=== PATIENT | male | born 1940 | race Caucasian/White ===

== ENCOUNTER 2016-11-11 00:09 | Inpatient (IN) | payer MEDICARE ==
[2016-11-11] VITALS (18 sets, daily range): BP systolic 114–165; BP diastolic 72–95; PULSE 57–81; RESP 16–20; TEMP 96.8–98.9; O2SAT 95–100
[~2016-11-11] VITALS: Ht 172.7 cm; Wt 98.5 kg
--- NOTE | 2016-11-11 00:46 | PD ---
HPI Chief Complaint: Chest Pain Time Seen by Provider: 00:28 Travel History International Travel<30 days: No Contact w/Intl Traveler<30days: No History of Present Illness HPI 76-year-old male complains of chest pain radiating from the right lower chest to the left anterior chest wall. It started after he got into bed this evening. Earlier in the day he unloaded luggage after driving to [place] for a vacation. He feels pain in the midline lower back at about the region of T12. Earlier in the day he felt indigestion and took Tums. Same symptoms occurred a second time and he took Tums again. He's had no fever or coughing. + Hx HLD, HTN and DM2. He quit smoking 25 years ago. No history of coronary artery disease. He describes the pain as a dull ache. Severity is mild. PFSH Social History Tobacco Use: No Allergies-Medications (Allergen,Severity, Reaction): Coded Allergies: Aspirin (Verified Allergy, Severe, Vision Loss/ Pass Out , 11/11/16) Reported Meds & Prescriptions Reported Meds & Active Scripts Active Reported Losartan (Losartan Potassium) 100 Mg Tab 100 Mg PO DAILY Atorvastatin (Atorvastatin Calcium) 10 Mg Tab 10 Mg PO HS Janumet Xr (Sitagliptin-Metformin ER) 50-1,000 Mg Tab 1 Tab PO DAILY Review of Systems Except as stated in HPI: all other systems reviewed are Neg General / Constitutional: No: Fever Cardiovascular: No: Chest Pain or Discomfort Physical Exam Narrative GENERAL: 76-year-old male well-nourished well-developed no acute distress SKIN: Focused skin assessment warm/dry. HEAD: Atraumatic. Normocephalic. EYES: Pupils equal and round. No scleral icterus. No injection or drainage. ENT: No nasal bleeding or discharge. Mucous membranes pink and moist. NECK: Trachea midline. No JVD. CARDIOVASCULAR: Regular rate and rhythm. No murmur appreciated. RESPIRATORY: No accessory muscle use. Clear to auscultation. Breath sounds equal bilaterally. GASTROINTESTINAL: Abdomen soft, non-tender, nondistended. Hepatic and splenic margins not palpable. MUSCULOSKELETAL: No obvious deformities. No clubbing. No cyanosis. No edema. No deformity along the spine. NEUROLOGICAL: Awake and alert. No obvious cranial nerve deficits. Motor grossly within normal limits. Normal speech. PSYCHIATRIC: Appropriate mood and affect; insight and judgment normal. Data Data Last Documented VS Vital Signs Date Time Temp Pulse Resp B/P Pulse Ox O2 Delivery O2 Flow Rate FiO2 11/11/16 00:51 72 20 100 Room Air 11/11/16 00:51 165/79 160/82 Orders Electrocardiogram (11/11/16 00:28) Basic Metabolic Panel (Bmp) (11/11/16 00:28) Ckmb (Isoenzyme) Profile (11/11/16 00:28) Complete Blood Count With Diff (11/11/16 00:28) Magnesium (Mg) (11/11/16 00:28) Prothrombin Time / Inr (Pt) (11/11/16:28) Act Partial Throm Time (Ptt) (11/11/16:28) Troponin I (11/11/16:) Chest, Single Ap (11/11/16:28) Ecg Monitoring (11/11/16 00:28) Iv Access Insert/Monitor (11/11/16:28) Oximetry (11/11/16 00:28) Oxygen Administration (11/11/16 00:28) CKMB (11/11/16 00:30) CKMB% (11/11/16 00:30) Sodium Chlor 0.9% 1000 Ml Inj (Ns 1000 M (11/11/16 01:30) Admit Order (Ed Use Only) (11/11/16 01:46) Labs Laboratory Tests Test 11/11/16 00:30 White Blood Count 15.2 TH/MM3 Red Blood Count 3.74 MIL/MM3 Hemoglobin 11.9 GM/DL Hematocrit 35.0 % Mean Corpuscular Volume 93.5 FL Mean Corpuscular Hemoglobin 31.6 PG Mean Corpuscular Hemoglobin 33.9 % Concent Red Cell Distribution Width 13.8 % Platelet Count 194 TH/MM3 Mean Platelet Volume 9.0 FL Neutrophils (%) (Auto) 60.2 % Lymphocytes (%) (Auto) 22.6 % Monocytes (%) (Auto) 12.7 % Eosinophils (%) (Auto) 3.1 % Basophils (%) (Auto) 1.4 % Neutrophils # (Auto) 9.2 TH/MM3 Lymphocytes # (Auto) 3.4 TH/MM3 Monocytes # (Auto) 1.9 TH/MM3 Eosinophils # (Auto) 0.5 TH/MM3 Basophils # (Auto) 0.2 TH/MM3 CBC Comment DIFF FINAL Differential Comment Prothrombin Time 10.7 SEC Prothromb Time International 1.0 RATIO Ratio Activated Partial 18.6 SEC Thromboplast Time Sodium Level 139 MEQ/L Potassium Level 4.9 MEQ/L Chloride Level 108 MEQ/L Carbon Dioxide Level 25.2 MEQ/L Anion Gap 6 MEQ/L Blood Urea Nitrogen 32 MG/DL Creatinine 1.50 MG/DL Estimat Glomerular Filtration 46 ML/MIN Rate Random Glucose 220 MG/DL Calcium Level 9.2 MG/DL Magnesium Level 2.1 MG/DL Total Creatine Kinase 162 U/L Creatine Kinase MB 2.4 NG/ML Troponin I LESS THAN 0.02 NG/ML MDM Medical Decision Making Medical Screen Exam Complete: Yes Emergency Medical Condition: Yes Differential Diagnosis NSTEMI, unstable angina, coronary vasospasm, PE, PTX, aortic dissection, pericarditis, myocarditis, endocarditis, PNA, esophageal disease, aneurysm, musculoskeletal etiologies, anxiety, cocaine/sympathomimetic abuse Narrative Course EKG shows a sinus rhythm at 81 left anterior fascicular block INR is 1.0 CBC & BMP Diagram 11/11/16 00:30 Troponins less than 0.02 Last 24 hours Impressions Chest X-Ray 11/11/16 0028 Signed Impressions: Service Date/Time: October 00:36 - CONCLUSION: No acute disease. Chaz Lui MD Patient will be kept overnight for chest pain center protocol. Discussed with Dr. Burkett. Diagnosis Primary Impression: Chest pain Qualified Code: R07.9 - Chest pain, unspecified type Admitting Information Admitting Physician Requests: Observation Gabriel Patel MD November 11, 2016 00:46
[2016-11-11 00:47] LABS: AUTOMATED NEUTROPHIL # 9.2 TH/MM3 (1.8-7.7); BASOPHIL # 0.2 TH/MM3 (0-0.2); BASOPHIL % 1.4 % (0.0-2.0); EOSINOPHIL # 0.5 TH/MM3 (0-0.4); EOSINOPHIL % 3.1 % (0.0-4.0); LYMPH % 22.6 % (9.0-44.0); LYMPHOCYTE # 3.4 TH/MM3 (1.0-4.8); MEAN CELL VOLUME 93.5 FL (80.0-100.0); MEAN CORPUSCULAR HEMOGLOBIN 31.6 PG (27.0-34.0); MEAN CORPUSCULAR HGB CONC 33.9 % (32.0-36.0); MONO % 12.7 % (0.0-8.0); NEUT % 60.2 % (16.0-70.0); PLATELET COUNT 194 TH/MM3 (150-450); RED BLOOD COUNT 3.74 MIL/MM3 (4.50-5.90); RED CELL DISTRIBUTION WIDTH 13.8 % (11.6-17.2); WHITE BLOOD COUNT 15.2 TH/MM3 (4.0-11.0)
[2016-11-11 00:48] LABS: HEMO FLAGS DIFF FINAL
[2016-11-11 00:53] LABS: CHLORIDE 108 MEQ/L (98-107); SODIUM (NA) 139 MEQ/L (136-145)
[2016-11-11 00:56] LABS: ANION GAP 6 MEQ/L (5-15); BICARBONATE 25.2 MEQ/L (21.0-32.0); MAGNESIUM 2.1 MG/DL (1.5-2.5)
[2016-11-11 00:57] LABS: BLOOD UREA NITROGEN 32 MG/DL (7-18)
[2016-11-11 00:58] LABS: POTASSIUM 4.9 MEQ/L (3.5-5.1)
[2016-11-11 01:00] LABS: GLOMERULAR FILTRATION RATE 46 ML/MIN (>89)
--- NOTE | 2016-11-11 01:00 | RADHPO ---
EXAM DATE/TIME: 11/11/2016 00:36 [facility] COMPARISON: No previous studies available for comparison. INDICATIONS : Chest pain for 2 hours MEDICAL HISTORY : None. SURGICAL HISTORY : None. ENCOUNTER: Initial ACUITY: 1 day PAIN SCORE: 7/10 LOCATION: Center of chest FINDINGS: A single view of the chest demonstrates the lungs to be symmetrically aerated without evidence of mas s, infiltrate or effusion. The cardiomediastinal contours are unremarkable. Osseous structures are intact. CONCLUSION: No acute disease. Chaz Lui MD on November 11, 2016 at 0:59 Board Certified Radiologist. This report was verified electronically.
[2016-11-11 01:03] LABS: CREATINE KINASE 162 U/L (39-308); PROTHROMBIN TIME - PATIENT 10.7 SEC (9.8-11.6)
[2016-11-11 01:08] LABS: APTT (PATIENT) 18.6 SEC (24.3-30.1)
[2016-11-11] MEDS ORDERED: ATOR10TA15 PO (01:09)
[2016-11-11] MEDS ORDERED: SITA50TA4 PO (01:09)
[2016-11-11] MEDS ORDERED: LOSA100T PO (01:09)
[2016-11-11 01:15] LABS: CKMB 2.4 NG/ML (0.5-3.6)
[2016-11-11] MEDS ORDERED: SODIUM CHLOR 0.9% 1000 ML INJ 1,000 ML IV ONE (01:30)
[2016-11-11] MEDS ORDERED: SODIUM CHLORIDE 0.9% FLUSH 10 ML FLUSH IV FLUSH PRN (02:00)
[2016-11-11] MEDS ORDERED: DEXTROSE 50% IN WATER 50 ML VIAL(D50) IV ONE (02:00)
[2016-11-11] MEDS ORDERED: GLUCAGON 1 MG/ML VIAL IM ONE (02:00)
[2016-11-11] MEDS: SODIUM CHLORIDE 0.9% FLUSH 10 ML FLUSH IV FLUSH SCH ×2 (09:00→20:41)
[2016-11-11 09:33] LABS: AUTOMATED NEUTROPHIL # 3.2 TH/MM3 (1.8-7.7); BASOPHIL % 0.4 % (0.0-2.0); EOSINOPHIL # 0.1 TH/MM3 (0-0.4); EOSINOPHIL % 2.3 % (0.0-4.0); HEMATOCRIT 31.1 % (39.0-51.0); HEMO FLAGS DIFF FINAL; LYMPHOCYTE # 1.2 TH/MM3 (1.0-4.8); MEAN CELL VOLUME 93.6 FL (80.0-100.0); MEAN CORPUSCULAR HEMOGLOBIN 31.8 PG (27.0-34.0); MONO % 13.2 % (0.0-8.0); NEUT % 61.1 % (16.0-70.0); PLATELET COUNT 166 TH/MM3 (150-450); RED BLOOD COUNT 3.32 MIL/MM3 (4.50-5.90); RED CELL DISTRIBUTION WIDTH 13.7 % (11.6-17.2); WHITE BLOOD COUNT 5.2 TH/MM3 (4.0-11.0)
[2016-11-11 09:49] LABS: BICARBONATE 25.2 MEQ/L (21.0-32.0)
[2016-11-11 09:55] LABS: POTASSIUM 4.4 MEQ/L (3.5-5.1)
[2016-11-11] MEDS ORDERED: GLUCAGON 1 MG/ML VIAL OTHER PRN (11:15)
[2016-11-11] MEDS ORDERED: LABETALOL HCL 100 MG/20 ML VIAL IV PUSH PRN (11:15)
[2016-11-11] MEDS ORDERED: DEXTROSE 50% IN WATER 50 ML VIAL(D50) IV PRN (11:15)
[2016-11-11] MEDS ORDERED: NITROGLYCERIN 0.4 MG SL 25 TABS/BTL SL PRN (11:30)
--- NOTE | 2016-11-11 11:34 | MB ---
cc: MIMI ABDI DATE OF CONSULTATION 11/11/2016 INDICATION [id number] MA. HISTORY OF PRESENT ILLNESS A 76-year-old gentleman with history of diabetes, hyperlipidemia and hypertension who presented to the emergency department at [facility] with chest pain on the right side radiating towards the left anterior chest wall. He states that earlier in the day he was lifting luggage after driving to [place] [employer] for a vacation. He developed some back pain, indigestion, then developed chest pain. He has no prior history of known heart disease. He came into emergency department. There the electrocardiogram was relatively unremarkable. Initial troponin was negative. Over the course of the evening his troponin bumped up to 0.07. We are consulted for further recommendations regarding management. Currently reports mild active chest pain. ALLERGIES ASPIRIN. MEDICATIONS 1. Losartan. 2. Atorvastatin. 3. Janumet. REVIEW OF SYSTEMS A 12-point review of some was performed, negative unless otherwise noted in the History of Present Illness. SOCIAL HISTORY Quit smoking 25 years ago. Denies any alcohol or drug use. FAMILY HISTORY Denies any family history of early coronary artery disease or sudden cardiac . PHYSICAL EXAMINATION VITAL SIGNS: Pulse is 71, temperature is 98, respiratory rate 16, blood pressure 139/78 mmHg. GENERAL: Awake, alert, oriented x 3. In no acute distress. HEENT: Exam shows pupils reactive to light and accommodation. Extraocular movements are inact. NECK: No elevation in jugular venous distension. No thyromegaly or lymphadenopathy. No carotid bruits. LUNGS: Clear to auscultation bilaterally. CARDIOVASCULAR EXAM: Regular rate and rhythm without murmurs, rubs or gallops. ABDOMEN: Exam is nontender, nondistended. Good bowel sounds. No hepatosplenomegaly. EXTREMITIES: No clubbing, cyanosis or edema. Good peripheral pulses. NEUROLOGIC: Cranial nerves intact. Motor and sensory grossly intact. LABORATORY DATA WBC 5.2, hemoglobin 10.6, platelet count is 166. INR is 1.0. Sodium 145, potassium 4.4, chloride 111, bicarb is 25, BUN is 29, creatinine is 1.3. Troponin is 0.07. ELECTROCARDIOGRAM Sinus rhythm, poor R-wave progression, nonspecific T-wave abnormality. CONCLUSIONS 1. [id number] MA. 2. Diabetes. 3. Hypertension. 4. Hyperlipidemia. PLAN Symptoms are suggestive. Electrocardiograms shows some nonspecific changes but the patient is having on and off intermittent chest pain associated with elevated troponin. His pretest likelihood for disease is high given his diabetes, hypertension and hyperlipidemia. I do not think there is any utility for stress test in this situation. We will proceed directly with cardiac catheterization. Patient is going to decide if he wants to proceed with cardiac catheterization. MD GOSIA Mandujano/CHANCE /10:52 AM /11:14 AM [id number]
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
--- NOTE | 2016-11-11 12:29 | EKG ---
Date Performed: 11/11/2016 Time Performed: 03:38:16 PTAGE: 76 years EKG: Sinus rhythm Left axis deviation RBBB with left anterior fascicular block Abnormal ECG PREVIOUS TRACING : 11/11/2016 00.11 Since previous tracing, no significant change noted DOCTOR: Manny Rock Interpretating Date/Time 11/11/2016 12:28:17
--- NOTE | 2016-11-11 12:30 | EKG ---
Date Performed: 11/11/2016 Time Performed: 00:11:44 PTAGE: 76 years EKG: Sinus rhythm . Left anterior fascicular block Septal ST-T changes are nonspecific Borderline ECG NO PREVIOUS TRACING DOCTOR: Manny Rock Interpretating Date/Time 11/11/2016 12:29:06
--- NOTE | 2016-11-11 12:33 | EKG ---
Date Performed: 11/11/2016 Time Performed: 06:12:52 PTAGE: 76 years EKG: Normal Sinus rhythm Left axis deviation RBBB with left anterior fascicular block Abnormal ECG PREVIOUS TRACING : 11/11/2016 03.38 Since previous tracing, no significant change noted DOCTOR: Manny Rock Interpretating Date/Time 11/11/2016 12:32:08
[2016-11-11] MEDS: SODIUM CHLOR 0.9% 1000 ML INJ 1,000 ML IV SCH ×2 (12:50→19:49)
[2016-11-11 13:14] LABS: HDL CHOLESTEROL 31.9 MG/DL (40.0-60.0); LDL CHOLESTEROL 69 MG/DL (0-99)
[2016-11-11] MEDS: INSULIN ASPART SUPPLEMENTAL SCALE SQ SCH ×2 (16:00→20:46)
--- NOTE | 2016-11-11 17:38 | EC ---
Study Study Date:11/11/2016 STUDY CONCLUSIONS SUMMARY - Procedure narrative: Transthoracic echocardiography. Image quality was suboptimal. The study was technically limited due to poor acoustic window availability. Scanning was performed from the parasternal, apical, and subcostal acoustic windows. - Left ventricle: Not well visualized. The cavity size was normal. Wall thickness was normal. Systolic function was mildly reduced. The estimated ejection fraction was in the range of 45% to 50%. Probable hypokinesis of the anterior and apical myocardium. - Aortic valve: Valve area: 2.35cm^2(VTI). Valve area: 2.94cm^2 (Vmax). - Mitral valve: Mild regurgitation. - Tricuspid valve: Mild regurgitation. If LV function is below 40, please consider prescribing an ACEI or ARB or document rationale for non-use. PROCEDURE DATA STUDY STATUS: Elective. Procedure: Transthoracic echocardiography. Image quality was suboptimal. The study was technically limited due to poor acoustic window availability. Scanning was performed from the parasternal, apical, and subcostal acoustic windows. Study completion: The patient tolerated the procedure well. Transthoracic echocardiography. M-mode, complete 2D, complete spectral Doppler, and color Doppler. Height: Height: 68in. Weight: Weight: 184.6lb. Body mass index: BMI: 28.1kg/m^2. Body surface area: BSA: 1.98m^2. Patient status: Inpatient. CARDIAC ANATOMY LEFT VENTRICLE: Not well visualized. The cavity size was normal. Wall thickness was normal. Systolic function was mildly reduced. The estimated ejection fraction was in the range of 45% to 50%. Regional wall motion abnormalities: Probable hypokinesis of the anterior and apical myocardium. AORTIC VALVE: Trileaflet; normal thickness leaflets. Doppler: Transvalvular velocity was within the normal range. There was no stenosis. No regurgitation. Valve area: 2.35cm^2(VTI). Indexed valve area: 1.19cm^2/m^2 (VTI). Valve area: 2.94cm^2 (Vmax). Indexed valve area: 1.48cm^2/m^2 (Vmax). Mean gradient: 2mm Hg (S). AORTA: Aortic root: The aortic root was normal in size. MITRAL VALVE: Structurally normal valve. Doppler: Transvalvular velocity was within the normal range. There was no evidence for stenosis. Mild regurgitation. LEFT ATRIUM: The atrium was normal in size. RIGHT VENTRICLE: The cavity size was normal. Wall thickness was normal. PULMONIC VALVE: Doppler: Transvalvular velocity was within the normal range. There was no evidence for stenosis. No regurgitation. TRICUSPID VALVE: Structurally normal valve. Doppler: Transvalvular velocity was within the normal range. Mild regurgitation. PULMONARY ARTERY: The main pulmonary artery was normal-sized. Systolic pressure was within the normal range. RIGHT ATRIUM: The atrium was normal in size. PERICARDIUM: There was no pericardial effusion. SYSTEMIC VEINS: Inferior vena cava: The vessel was normal in size. Patient weight: 184.6lb _Ejection fraction:_ 65-75% _Fractional shortening:_ 32% up to 5Kg 5-11.5Kg 11.6-22.9Kg 23-45Kg 45-57Kg Aortic Root 7-13 <17 13-22 17-27 17-27 LA diam 6-13 <23 24-38 33-47 37-40 RVID 10-17 7-15 7-15 7-18 8-17 LVIDd 12-22 <32 24-38 33-47 37-40 LVPW 2-4 3-6 5-7 6-8 7-8 IVS 2-4 3-6 5-7 6-8 7-8 BASIC MEASUREMENTS ADULT NORMAL Left ventricle LV internal dimension, ED, chordal 51.7 mm 43-52 level, PLAX LV internal dimension, ES, chordal *39.6 mm 23-38 level, PLAX Fractional shortening, chordal level, *23 % >29 PLAX LV posterior wall thickness, ED 8.84 mm IVS/LVPW ratio, ED 0.99 <1.3 Ventricular septum Septal thickness, ED 8.78 mm Aortic valve Leaflet separation 20 mm 15-26 Aorta Root diameter, ED 35 mm Left atrium Anterior-posterior dimension 34 mm Anterior-posterior dimension index 1.72 cm/m^2 <2.2 BASIC MEASUREMENTS ADULT NORMAL Aortic valve Leaflet separation 20 mm 15-26 DOPPLER MEASUREMENTS ADULT NORMAL Aortic valve Peak velocity, S 88.2 cm/s Mean velocity, S 61.4 cm/s VTI, S 18 cm Mean gradient, S 2 mm Hg Valve area, VTI 2.35 cm^2 Valve area index, VTI 1.19 cm^2/m^2 Valve area, Vmax 2.94 cm^2 Valve area index, Vmax 1.48 cm^2/m^2 Mitral valve Peak E-wave velocity 60.2 cm/s Peak A-wave velocity 99.2 cm/s Deceleration time 173 ms 150-230 Peak E/A ratio 0.6 Tricuspid valve Regurgitant peak velocity 189 cm/s Peak RV-RA gradient, S 14 mm Hg Maximal regurgitant velocity 189 cm/s Pulmonic valve Peak velocity, S 68.4 cm/s LEGEND: Mean values are shown as u=mean value. Asterisk (*) guthrie values outside specified normal range. Amended Shady Murray [id number]
[2016-11-11] MEDS: ATORVASTATIN 10 MG TAB PO SCH (20:41)
[2016-11-11 22:26] LABS: HEMOGLOBIN A1a 1.3 %; HEMOGLOBIN A1b 2.3 %; HEMOGLOBIN Ao 79.4 %; HEMOGLOBIN LA1C 2.5 %; HEMOGLOBIN P3 4.5 %
[2016-11-12] VITALS (27 sets, daily range): BP systolic 99–148; BP diastolic 55–88; PULSE 52–89; RESP 18; TEMP 97.8–98.7; O2SAT 98–100
[2016-11-12] MEDS: INSULIN ASPART SUPPLEMENTAL SCALE SQ SCH ×4 (06:15→20:59)
--- NOTE | 2016-11-12 07:47 | PD.CARD.PN ---
Subjective Subjective Remarks chest pain and shoulder pain 3 am CP free now Objective Medications Active Medications Atorvastatin Calcium 10 mg 10 mg HS PO Last administered on 11/11/16 20:41; Admin Dose 10 MG; Start 11/11/16 at 21:00 Dextrose (D50w (Vial) Inj) 50 ml UNSCH PRN IV; Start 11/11/16 at 11:15 Glucagon (Glucagon Inj) 1 mg UNSCH PRN OTHER; Start 11/11/16 at 11:15 Labetalol HCl (Trandate Inj) 10 mg Q6H PRN IV PUSH; Start 11/11/16 at 11:15 Nitroglycerin (Nitrostat Sl) 0.4 mg Q5M PRN SL; Start 11/11/16 at 11:30 Sodium Chloride (NS 1000 ml Inj) 1,000 ml @ 100 mls/hr Q10H IV Last administered on 11/11/16 19:49; Admin Dose 100 MLS/HR; Start 11/11/16 at 09:49 ; Stop 11/11/16 at 21:48; Status DC Sodium Chloride (NS Flush) 2 ml BID IV FLUSH Last administered on 11/11/16 20: 41; Admin Dose 2 ML; Start 11/11/16 at 09:00 Vital Signs / I&O Vital Signs Date Time Temp Pulse Resp B/P Pulse Ox O2 Delivery O2 Flow Rate FiO2 11/12/16 06:00 78 11/12/16 05:00 54 11/12/16 04:00 52 11/12/16 03:00 97.9 57 18 99/55 98 11/12/16 03:00 52 11/12/16 02:16 52 11/12/16 01:04 56 11/12/16 00:00 57 11/11/16 23:00 57 11/11/16 23:00 97.9 61 18 114/72 99 11/11/16 22:00 60 11/11/16 21:00 64 11/11/16 20:35 100 21 11/11/16 20:00 70 11/11/16 19:00 98.9 70 18 151/91 100 11/11/16 19:00 72 11/11/16 18:00 76 11/11/16 17:03 98.4 72 16 163/95 100 11/11/16 15:43 98 21 11/11/16 14:00 97.9 67 18 143/77 99 11/11/16 13:17 67 11/11/16 08:00 98.0 71 16 139/78 99 I/O 11/11/16 11/11/16 11/11/16 11/12/16 11/12/16 11/12/16 07:00 15:00 23:00 07:00 15:00 23:00 Intake Total 521 ml 240 ml Output Total 700 ml 376 ml Balance -179 ml -136 ml Intake Oral 240 ml IV Total 521 ml Output Urine Total 700 ml 375 ml Stool Total 1 ml # Voids 2 Physical Exam GENERAL: SKIN: Warm and dry. HEAD: Normocephalic. EYES: No scleral icterus. No injection or drainage. NECK: Supple, trachea midline. No JVD or lymphadenopathy. CARDIOVASCULAR: Regular rate and rhythm without murmurs, gallops, or rubs. RESPIRATORY: Breath sounds equal bilaterally. No accessory muscle use. GASTROINTESTINAL: Abdomen soft, non-tender, nondistended. MUSCULOSKELETAL: No cyanosis, or edema. BACK: Nontender without obvious deformity. No CVA tenderness. Imaging Last Impressions Chest X-Ray 11/11/16 0028 Signed Impressions: Service Date/Time: October 00:36 - CONCLUSION: No acute disease. Chaz Lui MD Assessment and Plan Assessment and Plan NSTEMI - recurrent symptoms. elevated troponin. Patient agreeable to [facility]. no aspirin due to allergy no BB due to bradycardia no JUDY due to hypotension NPO MinorShady MD November 12, 2016 07:47
[2016-11-12] MEDS ORDERED: HEPARIN-NS/PF INJ 500 ML ONE (08:07)
[2016-11-12] MEDS ORDERED: MIDAZOLAM HCL 2 MG/2 ML VIAL ONE (08:09)
[2016-11-12] MEDS ORDERED: HEPARIN SODIUM - IV 10,000 UNITS/10 ML VIAL ONE ×2 (08:10→10:21)
[2016-11-12] MEDS ORDERED: NITROGLYCERIN INJ 5 ML ONE (08:11)
[2016-11-12] MEDS ORDERED: BIVALIRUDIN 250 MG VIAL ONE (08:34)
[2016-11-12] MEDS ORDERED: IOHEXOL 350 MG/ML 100 ML BTL (for Cath Lab) OTHER ONE (08:48)
[2016-11-12] MEDS: SODIUM CHLORIDE 0.9% FLUSH 10 ML FLUSH IV FLUSH SCH ×3 (09:00→20:53)
[2016-11-12] MEDS ORDERED: MISC INFORMATION XX ONE (09:00)
[2016-11-12] MEDS ORDERED: BACITRACIN OINT 0.9 GM PKT TOP ONE (09:00)
--- NOTE | 2016-11-12 09:01 | CATHPROC ---
[employer] HIS Report Study Information Study Number Admission Scheduled Start Study Start [id number] 11/11/2016 11/12/2016 Nov 12 2016 8:01AM Study Type [place] Service Left Heart Cath Cardiac Catheterization Referring Institution Admit Source Facility Department 1 Transfer in from another acute care [facility] - Tool Technician Physician and Clinical Staff Initial Shady Abel C Web Developer Tomer Parikh,RN C Web Developer Daphne Bowen,ADDY Recorder Josias Titus,RT(R) TECH2 Scrub Kleber Zavaleta,RT(R) Procedures Performed Procedure Location (Site) Vessel Name Angiogram LV LV Ventricle Coronary Angiograms LCA Left Coronary Coronary Angiograms RCA Right Coronary L Heart Cath Equipment Time Silk Winding Machine Operator Description Size Mfg Part Number Used/Scraped TRANSDUCER, TRUWAVE 08:05 CALDERA BOWEN * [id number] Used W/STOCKCOCK [id number] *[id number] *[id number] 08:05 [employer] INDUSTRIES PACK, CCL CUSTOM * Used *[id number] 08:05 [employer] SUPPORT, ARTERIAL ADULT [id number] Used 08:05 [employer] PACER PEN, SKIN DUAL W/ RULER * [id number] Used BAND, RADIAL COMPRESSION TR [id number] 08:47 [employer] 24CM Used SHORT 24 *[id number] SHEATH, FR6 RADIAL PRELUDE 08:05 [employer] FR 6 [id number] Used EASE 11CM [id number] 08:05 [employer] WIRE, EXCHANGE 260CM 3MMJ 260CM Used *[id number] 08:22 NAMIC TUBING, HIGH PRESSURE 48" 48" Used *[id number] 08:05 [employer] OMNIPAQUE, 350 MG, 100ML 100ML [id number] Used 08:44 [employer] OMNIPAQUE, 350 MG, 50ML 50ML [id number] Used [id number] 08:05 [employer] BLANKET,WARM AIR CCL * Used *[id number] History: Current Medications Medication Dosage/Unit Route Frequency Last Date/Time Taken Statins (any) Glucophage History: Allergies Allergy Reaction Aspirin Vision Loss/ Pass Out History: Risk Factors Family History of Hypertension Dyslipidemia Previous VT Previous Heart Failure Premature CAD Yes Yes No No No Prior Valve Prior PCI Prior CABG Surgery No No No Cerebrovascular Peripheral Artery Chronic Lung On Dialysis Diabetes Diabetes Therapy Disease Disease Disease No No No No Yes Oral History: Symptoms/Diagnosis Selection Items Chest pain History: Stress Tests Stress or Imaging Studies Performed No History: Other Disease Selection Items HTN History: Other Current Smoker Method Quit Packs a Day No Cigarettes 25 Years Ago 1 Labs Hgb (g/dl) Hct (%) WBC (l/cumm) Platelets (thousands) 12.00-18.00 37.00-55.00 4.80-10.80 140.00-450.00 10.6 31.1 5.2 166 BUN (mg/dl) Creatinine (mg/dl) BUN:Creatinine (1:x) 8.00-20.00 0.10-9.00 10.00-20.00 29 1.3 22.3 Na (meq/l) K (meq/l) 138.00-146.00 3.80-5.10 145 4.4 Troponin I (ng/ml) CPK-MB (ng/ML) 0.40-2.30 0.00-7.00 0.07 Not Drawn Medication Medication Total Dose (Bolus/Oral) Medication Total Dosage/Unit 1% XYLOCAINE 5 mL FENTANYL 50 mcg HEPARIN 4000 units VERSED 2 mg Medications (Bolus/Oral) Medication Time Given Dosage/Unit Administered By Reason VERSED 11/12/2016 8:25:54 AM 2 mg Daphne Bowen Patient arrived on 2 mg VERSED given by Daphne Bowen RN via Peripheral IV. Ordered by [facility] car[facility] Murray. 1% XYLOCAINE 11/12/2016 8:26:18 AM 5 mL Shady Murray 5 mL 1% XYLOCAINE given in lab by Shady Murray in Right Radial via Subcutaneous. Ordered by Shady Murray. FENTANYL 11/12/2016 8:26:20 AM 50 mcg Daphne Bowen Patient arrived on 50 mcg FENTANYL given by Daphne Bowen, ADDY via Peripheral IV. Ordered by Shady Murray. HEPARIN 11/12/2016 8:29:24 AM 4000 units Daphne Bowen 4000 units HEPARIN given in lab by Daphne Bowen RN via Peripheral IV. Medication (Drip) Medication Time Given Dosage/Unit Concentration/Unit Diluent (ml) Solution IV Solutions 11/12/2016 8:01:32 AM 0 mL (IV) 500 NaCl .9 Patient arrived on IV Solutions in Right Forearm via Peripheral IV. Pump/Drip Flow = 20 ml/hr using N aCl .9. Ordered by Shady Murray. Initial Case Assessment Cardiovascular HR Rhythm NIBP Chest Pain 80 SR 161/92 0 Edema Present Skin color Skin None Normal Warm Dry Circulatory - Right Pulses Dorsalis Pedis Femoral Radial 2 2 2 Scale (0,1,2,3,4,d) Scale (0,1,2,3,4,d) Circulatory - Lower Extremities Color Lower Right Color Lower Left Normal Normal Neurological State Oriented to time-place- Alert Moves all extremities person Respiration - General SpO2 (%) 98 Final Case Assessment Cardiovascular HR Rhythm NIBP Chest Pain 72 SR 121/68 0 Edema Present Skin color Skin None Normal Warm Dry Circulatory - Right Pulses Dorsalis Pedis Femoral Radial 2 2 2 Scale (0,1,2,3,4,d) Scale (0,1,2,3,4,d) Circulatory - Lower Extremities Color Lower Right Color Lower Left Normal Normal Neurological State Oriented to time-place- Alert Moves all extremities person Respiration - General SpO2 (%) 97 Chronological Log Time Study Chronological Log 8:01:06 Patient arrived via Bed. 8:01:07 Patient Name, D.O.B, / Armband Verified By R.N. 8:01:08 Consent signed by the physician and the patient and verified by the Tool Technician staff. 8:01:11 Allens test performed on the right radial and ulnar artery. 8:01:12 Patient has been NPO for Less than 6Hrs. 8:01:13 Skin Breakdown- NONE 8:01:15 Patient Warmer Placed on the Table. 8:01:29 Mari Prominences Protected 8:01:31 A # 20 IV was noted in the Forearm (right). Grade = 0 Patient arrived on IV Solutions in Right Forearm via Peripheral IV. Pump/Drip Flow = 20 ml/hr u sing NaCl .9. Ordered 8:01:32 by Shady Murray. 8:01:33 History and physical on the chart or being dictated. Assessment: Initial Case, HR=80 BPM, Rhythm=SR, UCNA=534/92 mmhg, Chest Pain=0, Edema=None, Col or=Normal, Skin = Warm, Dry Right Pulses: Jigar Ped=2, Femoral=2, Radial=2 8:01:34 Lower Right Extremities: Color=Normal Lower Left Extremities: Color=Normal Neurological: State=Alert, Ox3, GREEN Respiration: SpO2=98 % 8:01:37 Table restraints applied according to hospital policy 8:01:40 Right groin prepped with 2% chlorhexidine, and with a 3 min. waiting time. 8:01:41 Right radial, right brachial, and groin(s) prepped with 2% chlorhexidine, and with a 3 min. waiting time. 8:05:29 Reference ECG taken Vitals capture started with the following parameters, Patient=Adult, Interval=15 min, Initial Pr wpsdbl=476 mmHg, 8:09:10 Deflation Rate=5 mmHg 8:10:07 HR=80 bpm, VQMA=799/92 mmhg, SpO2=98.0 %, Resp=13 B/min, Pain=0, Stas=10, Mcmillan=2 8:14:48 HR=79 bpm, SGBM=789/90 mmhg, SpO2=98.0 %, Resp=15 B/min, Pain=0, Stas=10, Mcmillan=2 8:19:49 HR=80 bpm, SWVP=120/96 mmhg, SpO2=99.0 %, Resp=15 B/min 8:20:45 Pressure channel 1 zeroed. 8:24:48 HR=78 bpm, GRCM=303/95 mmhg, SpO2=98.0 %, Resp=11 B/min, Pain=0, Stas=10, Mcmillan=2 8:25:54 Patient arrived on 2 mg VERSED given by Daphne Bowen, ADDY via Peripheral IV. Ordered by Shady Murray. Time Out. Correct patient, correct procedure,correct physician, ,power injector loaded or not lo aded with contrast with 8:26:12 surgical team present. Time Out Concurred by MD, individual staff and PARTY PLAN SALES CONSULTANT in procedure 8:26:17 Case Start 8:26:18 5 mL 1% XYLOCAINE given in lab by Shady Murray in Right Radial via Subcutaneous. Ordered b y Shady Murray. 8:26:20 Patient arrived on 50 mcg FENTANYL given by Daphne Bowen, RN via Peripheral IV. Ordered by Shady Murray. 8:26:30 Access site was Radial Artery. A SHEATH, FR6 RADIAL PRELUDE EASE 11CM FR 6 was advanced into the Radial (right) using the Modif ieleydi Seldinger 8:28:57 technique. 8:29:24 4000 units HEPARIN given in lab by Daphne Bowen, ADDY via Peripheral IV. 8:29:53 HR=73 bpm, PTYO=988/71 mmhg, SpO2=94.0 %, Resp=9 B/min, Pain=0, Stas=10, Mcmillan=2 A JR 5.0 INFINITI CATHETER FR 6 was advanced over a wire. OMNIPAQUE, 350 MG, 100ML 100ML was use d for 8:30:30 injections. Recorded Pressure: LV, HR=74, Condition=Condition 1 8:32:11 (Left Ventricle) LV 83/1/6 Recorded Pressure: LV, Ao, HR=74, Condition=Condition 1 8:32:24 (Left Ventricle) LV 85/0/5, (Aorta) Ao 82/48/65 8:32:58 The RCA was injected and visualized at various angles. OMNIPAQUE, 350 MG, 100ML 100ML used. Recorded Pressure: Ao, HR=72, Condition=Condition 1 8:33:13 (Aorta) Ao 85/50/67 After removing the current catheter a JL 3.5 INFINITI CATHETER FR 6 was advanced over a WIRE, EX CHANGE 260CM 8:34:19 3MMJ 260CM. 8:34:48 HR=72 bpm, NIBP=96/61 mmhg, Resp=9 B/min 8:34:50 The LCA was injected and visualized at various angles. OMNIPAQUE, 350 MG, 100ML 100ML used. Recorded Pressure: Ao, HR=71, Condition=Condition 1 8:36:04 (Aorta) Ao 95/53/72 8:40:16 HR=75 bpm, TIMX=420/69 mmhg, SpO2=95.0 %, Resp=11 B/min, Pain=0, Stas=10, Mcmillan=2 After removing the current catheter a PIGTAIL ANG. INFINITI CATHETER FR 5 was advanced over a WI RE, EXCHANGE 8:43:09 260CM 3MMJ 260CM. 8:43:24 The LV was injected at 10 cc/sec for a total of 30. OMNIPAQUE, 350 MG, 50ML 50ML used. 8:44:44 HR=70 bpm, YZZH=382/68 mmhg, SpO2=96.0 %, Resp=11 B/min, Pain=0, Stas=10, Mcmillan=2 8:45:44 Catheter was removed 8:46:00 Case End Assessment: Final Case, HR=72 BPM, Rhythm=SR, CAVF=471/68 mmhg, Chest Pain=0, Edema=None, Color= Normal, Skin = Warm, Dry Right Pulses: Jigar Ped=2, Femoral=2, Radial=2 8:46:15 Lower Right Extremities: Color=Normal Lower Left Extremities: Color=Normal Neurological: State=Alert, Ox3, GREEN Respiration: SpO2=97 % 8:49:45 HR=71 bpm, BBKG=998/79 mmhg, SpO2=96.0 %, Resp=11 B/min, Pain=0, Stas=10, Mcmillan=2 Radial Compression Device Used. 13 mLs of air placed in BAND, RADIAL COMPRESSION TR SHORT 24 2 4CM. Affected 8:50:00 hand 97 % O2 saturation. 8:54:33 Vitals capture stopped. 8:57:24 No case complications noted. 8:57:26 Cine recording checked. 8:57:30 Bedside Report will be given. 8:57:31 Contrast Scanned 8:57:35 A Left Heart Cath was performed. 8:57:40 Clinical correlaton risk stratification. 8:58:13 Patient moved to [facility] End Study - Contrast Media Used In Study Contrast Total Opened (mL) Total Used (mL) Total Wasted (mL) Omnipaque 200 80 120 End Study - Maximum Contrast Load Max Contrast Load (mL) 323.1 End Study - Radiation Exposure Fluoro Time (minutes) 3.4 End Study - Sheaths Sheaths Pulled By Sheath Hold Time (min) Kleber Zavaleta End Study - Patient Disposition Complications Transferred To Interventional Outcome No Telemetry Bed No attempt made
[2016-11-12 11:17] LABS: MEAN CELL VOLUME 91.7 FL (80.0-100.0); MEAN CORPUSCULAR HEMOGLOBIN 32.1 PG (27.0-34.0); PLATELET COUNT 152 TH/MM3 (150-450); RED BLOOD COUNT 3.38 MIL/MM3 (4.50-5.90); RED CELL DISTRIBUTION WIDTH 14.3 % (11.6-17.2); REVIEW FLAG FINAL; WHITE BLOOD COUNT 6.3 TH/MM3 (4.0-11.0)
[2016-11-12 11:28] LABS: APTT (PATIENT) 36.5 SEC (24.3-30.1); INTERNATIONAL NORMALIZED RATIO 1.1 RATIO; PROTHROMBIN TIME - PATIENT 11.7 SEC (9.8-11.6)
--- NOTE | 2016-11-12 11:29 | PD.CAR.PN ---
CVT Progress Note Subjective/Hospital Course: sts data discussed with pt RISK SCORES About the STS Risk Calculator Procedure: CAB Only Risk of Mortality: 1.674% Morbidity or Mortality: 15.871% Long Length of Stay: 6.319% Short Length of Stay: 38.124% Permanent Stroke: 1.377% Prolonged Ventilation: 9.265% DSW Infection: 0.558% Renal Failure: 5.391% Reoperation: 5.603% Objective: Vital Signs Date Time Temp Pulse Resp B/P Pulse Ox O2 Delivery O2 Flow Rate FiO2 11/12/16 07:50 98.3 68 18 148/88 98 11/12/16 06:00 78 11/12/16 05:00 54 11/12/16 04:00 52 11/12/16 03:00 97.9 57 18 99/55 98 11/12/16 03:00 52 11/12/16 02:16 52 11/12/16 01:04 56 11/12/16 00:00 57 11/11/16 23:00 57 11/11/16 23:00 97.9 61 18 114/72 99 11/11/16 22:00 60 11/11/16 21:00 64 11/11/16 20:35 100 21 11/11/16 20:00 70 11/11/16 19:00 98.9 70 18 151/91 100 11/11/16 19:00 72 11/11/16 18:00 76 11/11/16 17:03 98.4 72 16 163/95 100 11/11/16 15:43 98 21 11/11/16 14:00 97.9 67 18 143/77 99 11/11/16 13:17 67 Labs: Laboratory Tests Test 11/12/16 11:03 White Blood Count 6.3 TH/MM3 (4.0-11.0) Red Blood Count 3.38 MIL/MM3 (4.50-5.90) Hemoglobin 10.8 GM/DL (13.0-17.0) Hematocrit 31.0 % (39.0-51.0) Mean Corpuscular Volume 91.7 FL (80.0-100.0) Mean Corpuscular Hemoglobin 32.1 PG (27.0-34.0) Mean Corpuscular Hemoglobin 35.0 % Concent (32.0-36.0) Red Cell Distribution Width 14.3 % (11.6-17.2) Platelet Count 152 TH/MM3 (150-450) Mean Platelet Volume 8.8 FL (7.0-11.0) Result Diagram: 11/12/16 1103 11/11/16 0713 Zahida Allen November 12, 2016 11:29
[2016-11-12] MEDS ORDERED: INSULIN REGULAR (IV INFUSION) 100 UNITS in SODIUM CHLORIDE 0.9% INJ 100 ML IV SCH (11:30)
[2016-11-12] MEDS: HEPARIN-D5W INJ 250 ML IV SCH (11:30)
[2016-11-12] MEDS ORDERED: CHLORHEXIDINE GLUCONATE 4% SOLN 120 ML BTL TOPICAL SCH (11:30)
[2016-11-12] MEDS ORDERED: ceFAZolin 2 GM PREMIX 50 ML IV SCH (11:30)
[2016-11-12] MEDS ORDERED: CEFAZOLIN INJ 500 MG in SODIUM CHLORIDE 0.9% IRR BTL 500 ML IRRIGATION SCH (11:30)
[2016-11-12] MEDS ORDERED: PILL SPLITTER OTHER PRN (11:30)
[2016-11-12] MEDS ORDERED: PAPAVERINE INJ 60 MG, NITROGLYCERIN INJ 100 MCG, DILTIAZEM INJ 100 MG in SODIUM CHLORID... IRRIGATION SCH (11:30)
[2016-11-12] MEDS ORDERED: SODIUM CHLORIDE 0.9% FLUSH 10 ML FLUSH IV FLUSH PRN (11:30)
[2016-11-12] MEDS ORDERED: METOPROLOL TARTRATE 25 MG TAB PO SCH (11:30)
[2016-11-12] MEDS: METOPROLOL TARTRATE 25 MG TAB PO SCH ×2 (12:00→20:53)
--- NOTE | 2016-11-12 12:50 | MB ---
cc: SALIMA CAIN MD DATE OF CONSULTATION: 11/12/2016 DATE OF : 1940 REASON FOR CONSULTATION: This is a 7e year-old male visiting his sister from [facility]. On the evening of his arrival he developed some chest pain on the right side radiating towards the left side of his chest. He said he noted earlier when he was lifting luggage after arriving from for his vacation with his sister. He also developed some back pain, indigestion. No prior history of known heart disease. His risk factors include age, diabetes, hypertension and hyperlipidemia. The patient's EKG was relatively unremarkable. He did have a however right bundle branch block. Troponin was initially negative and the second came back at 0.07. The patient underwent cardiac cath by Dr. Murray this morning which showed the proximal LAD 30%. The mid distal LAD 95%. The diagonal was 75%. The circ was 20%. The OM 20%. The RCA 80% with EF of 45%. We were consulted to evaluate for coronary artery bypass grafting. PAST MEDICAL HISTORY: The patient's past medical history includes diabetes mellitus, Hyperlipidemia Hypertension He does have some mild renal insufficiency. ALLERGIES Include ASPIRIN, he apparently has blurred vision, followed by syncope type symptoms MEDICATIONS home meds include 1. Losartan. 2. Atorvastatin 3. Janumet. FAMILY HISTORY Father from cancer. Mother had cancer. SOCIAL HISTORY The patient , has five children. 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 SOCIAL HISTORY Quit smoking 25 years ago he smoked basically cigars no alcohol or drug use. REVIEW OF SYSTEMS IN GENERAL: No night sweats, fever, heat and cold intolerance. SKIN: No psoriasis, itching or hives. HEAD, EYES, EARS, NOSE, AND THROAT: No blurred vision, hearing loss. RESPIRATORY: Mild shortness of breath. CARDIOVASCULAR SYSTEM: As above in history of present illness. GASTROINTESTINAL: No diarrhea, vomiting. GENITOURINARY: No burning frequency, burning frequency, urgency. CENTRAL NERVOUS SYSTEM: No history of TIA, CVA, seizure disorder, ENDOCRINOLOGY: Positive for diabetes. PHYSICAL EXAMINATION: VITAL SIGNS: On exam blood pressure is 148/80, heart rate 68, afebrile. O2 sat 98 on room air. IN GENERAL: Patient is awake, alert in no acute distress head is normocephalic, atraumatic. Pupils equal and reactive. Oral mucosa pink, moist. NECK: Supple. No JVD. HEART: Heart sounds S1-S2 regular rate and rhythm. No rubs, murmurs, gallops. LUNGS: Clear to auscultation. No wheezes, rales or rhonchi. ABDOMEN: Soft, nontender. No masses or organomegaly. EXTREMITIES: Reveal no cyanosis, clubbing or edema. LABORATORY WORK UP: The lab work shows hemoglobin 10.6, hematocrit of 31, white cell count 5.2, platelet count 166, sodium 145, potassium 4.4, BUN 29, creatinine 1.30. Glucose ranging 190-230, triglycerides 97, cholesterol 120, LDL 69, troponin again was 0.07. The INR was 1.0. Chest x-ray was unremarkable. IMPRESSION This is a very pleasant 76-year-old male on vacation from [facility] who developed chest pain with non STEMI, he underwent cardiac cath with multivessel disease. PLAN: The plan will be for coronary artery bypass grafting x3. Procedures, alternatives and risks have been discussed with the patient and evaluated with Dr. Salima Cain. The plan will be for surgery on Tuesday. Further workup to include ultrasound of the carotids and on the lower extremities and also follow up with his hemoglobin A1c. We will discontinue his losartan and add a very low dose beta enrique and some amlodipine for his blood pressure control. Please note the patient has a significant allergy to Aspirin, and will need to be on Plavix postoperatively. DICTATED BY: VICKI Urrutia Salima De La Torre /11:34 AM /12:49 PM
[2016-11-12 14:06] LABS: HEMOGLOBIN A1a 1.6 %; HEMOGLOBIN A1b 2.3 %; HEMOGLOBIN Ao 79.6 %; HEMOGLOBIN LA1C 2.5 %; HEMOGLOBIN P3 4.2 %
--- NOTE | 2016-11-12 14:30 | RADRPT ---
EXAM DATE/TIME: 11/12/2016 13:01 [facility] COMPARISON: No previous studies available for comparison. INDICATIONS : Preop cardiac surgery. MEDICAL HISTORY : Hypercholesterolemia. Hypertension. Diabetes. SURGICAL HISTORY : Tonsillectomy.Appendectomy. ENCOUNTER: Initial ACUITY: 2 day PAIN SCORE: 1/10 LOCATION: Bilateral Lower Extremities. TECHNIQUE: Venous ultrasound of the left and right leg was performed from the inguinal ligament to the proximal calf. Real-time, color Doppler and spectral tracing, compression and augmentation techniques were us ed. FINDINGS: RIGHT LEG: There is normal compressibility of the deep venous system from the inguinal region to the proximal ca lf. No echogenic clot is seen in the lumen of the common femoral, femoral, popliteal, and posterior tibial veins. There is a normal response of the venous system to proximal and distal augmentation an d respiration. LEFT LEG: There is normal compressibility of the deep venous system from the inguinal region to the proximal ca lf. No echogenic clot is seen in the lumen of the common femoral, femoral, popliteal, and posterior tibial veins. There is a normal response of the venous system to proximal and distal augmentation an d respiration. CONCLUSION: 1. No evidence of deep venous thrombosis. Manny Manzano MD on November 12, 2016 at 14:29 Board Certified Radiologist. This report was verified electronically.
[2016-11-12] MEDS: amLODIPine BESYLATE 5 MG TAB PO SCH (14:50)
--- NOTE | 2016-11-12 15:08 | RADRPT ---
EXAM DATE/TIME: 11/12/2016 11:56 [facility] COMPARISON: No previous studies available for comparison. INDICATIONS : Preop cardiac surgery. MEDICAL HISTORY : Hypercholesterolemia. Hypertension. Diabetes. SURGICAL HISTORY : Appendectomy. Tonsillectomy. ENCOUNTER: Initial ACUITY: 1 day PAIN SCORE: 0/10 LOCATION: Bilateral neck PEAK SYSTOLIC VELOCITIES (cm/sec): ICA/CCA RATIO: Right: 1.6 Left: 0.8 ICA: Right: 131.5 Left: 65.9 CCA: Right: 80.2 Left: 86.7 ECA: Right: 65.0 Left: 49.4 VERTEBRAL: Right: 63.3 antegrade Left: 14.8 antegrade Elevated flow velocities and ICA/CCA ratios have been found to correlate with increased degrees of vessel stenosis, calculated as percentage of diameter relative to a normal segment of distal ICA/CCA FINDINGS: RIGHT CAROTID: No significant stenosis is visualized. There is only minimal atherosclerotic plaquing. The waveforms are within normal limits. LEFT CAROTID: No significant stenosis is visualized. There is mild/moderate atherosclerotic plaquing. The waveform s are within normal limits. VERTEBRAL ARTERIES: Antegrade flow is seen in both vertebral arteries. There was very minimal flow seen within the leftwa rd. MISCELLANEOUS: None. CONCLUSION: 1. Right carotid: 2. Atherosclerotic plaquing with mild elevation of velocity ratio on the right. This would suggest a mild degree of stenosis in the origin of the right internal carotid. This is felt to be less than 50% .3. 4. Left carotid: 5. Moderate atherosclerotic plaquing at the bifurcation. No hemodynamically significant stenosis iden tified. 6. The left vertebral appears atretic with only limited flow. Gabriel Silva MD on November 12, 2016 at 15:03 Board Certified Radiologist. This report was verified electronically.
--- NOTE | 2016-11-12 15:10 | RADRPT ---
EXAM DATE/TIME: 11/12/2016 13:56 [facility] COMPARISON: US LEG BILATERAL VENOUS DOPPLER, November 12, 2016, 13:01. INDICATIONS : Preop cardiac surgery. MEDICAL HISTORY : Hypercholesterolemia. Hypertension. Diabetes. SURGICAL HISTORY : Appendectomy. Tonsillectomy. ENCOUNTER: Initial ACUITY: 1 day PAIN SCORE: 0/10 LOCATION: Bilateral leg. GREATER SAPHENOUS VEIN THIGH: PROXIMAL: Right 8 mm Left 6 mm MID: Right 1 mm Left 3 mm DISTAL: Right 1 mm Left 2 mm CALF: PROXIMAL: Right Non-visualized Left 2 mm MID: Right Non-visualized Left 2 mm DISTAL: Right Non-visualized Left 2 mm FINDINGS: The venous system of the lower extremities are patent by color Doppler imaging. Measurements of the leg veins (in mm) are listed above. CONCLUSION: 1. Venous mapping as above. Gabriel Silva MD on November 12, 2016 at 15:08 Board Certified Radiologist. This report was verified electronically.
[2016-11-12 18:14] LABS: BLOOD, URINE TRACE (NEG); COMMENT (UR) CULT NOT INDICATED; CULTURE IF INDICATED CULT NOT INDICATED; GLUCOSE,URINE 300 mg/dL (NEG); KETONE, URINE NEG (NEG); NITRITE,URINE NEG (NEG); PH, URINE 5.5 (5.0-8.5); SQUAMOUS EPITHELIAL CELL URINE <1 /hpf (0-5); URINE COLOR YELLOW (YELLW/STRAW)
--- NOTE | 2016-11-12 18:37 | HHI.PR ---
Subjective Remarks Patient denies cp/sob Stable vital signs Objective Vitals Vital Signs Date Time Temp Pulse Resp B/P Pulse Ox O2 Delivery O2 Flow Rate FiO2 11/12/16 15:00 60 11/12/16 14:00 66 11/12/16 13:00 60 11/12/16 12:00 97.9 65 18 130/73 99 11/12/16 12:00 64 11/12/16 12:00 97.9 65 18 130/73 99 11/12/16 11:00 66 11/12/16 10:30 76 18 138/78 99 11/12/16 10:00 72 18 141/81 98 11/12/16 10:00 76 11/12/16 09:30 79 135/76 100 11/12/16 09:15 89 136/81 11/12/16 08:55 97.8 69 18 144/79 98 11/12/16 07:50 98.3 68 18 148/88 98 11/12/16 07:00 68 11/12/16 06:00 78 11/12/16 05:00 54 11/12/16 04:00 52 11/12/16 03:00 97.9 57 18 99/55 98 11/12/16 03:00 52 11/12/16 02:16 52 11/12/16 01:04 56 11/12/16 00:00 57 11/11/16 23:00 57 11/11/16 23:00 97.9 61 18 114/72 99 11/11/16 22:00 60 11/11/16 21:00 64 11/11/16 20:35 100 21 11/11/16 20:00 70 11/11/16 19:00 98.9 70 18 151/91 100 11/11/16 19:00 72 I/O 11/11/16 11/11/16 11/11/16 11/12/16 11/12/16 11/12/16 07:00 15:00 23:00 07:00 15:00 23:00 Intake Total 521 ml 240 ml Output Total 700 ml 376 ml Balance -179 ml -136 ml Intake Oral 240 ml IV Total 521 ml Output Urine Total 700 ml 375 ml Stool Total 1 ml # Voids 2 Result Diagram: 11/12/16 1103 11/11/16 0713 Imaging Last Impressions Lower Extremity Ultrasound 11/12/16 0000 Signed Impressions: Service Date/Time: Saturday, November 12, 2016 13:56 - CONCLUSION: 1. Venous mapping as above. Gabriel Silva MD Carotid Artery Ultrasound 11/12/16 0000 Signed Impressions: Service Date/Time: Saturday, November 12, 2016 11:56 - CONCLUSION: 1. Right carotid : 2. Atherosclerotic plaquing with mild elevation of velocity ratio on the right. This would suggest a mild degree of stenosis in the origin of the right internal carotid. This is felt to be less than 50%%. 3. 4. Left carotid: 5. Moderate atherosclerotic plaquing at the bifurcation. No hemodynamically significant stenosis identified. 6. The left vertebral appears atretic with only limited flow. Gabriel Silva MD Chest X-Ray 11/11/16 0028 Signed Impressions: Service Date/Time: October 00:36 - CONCLUSION: No acute disease. Chaz Lui MD Objective Remarks GENERAL: This is a well-nourished, well-developed patient, in no apparent distress, lying in bed. SKIN: No rashes, ecchymoses or lesions. Warm and dry. HEAD: Atraumatic. Normocephalic. EYES: Extraocular motions intact. No scleral icterus. No injection or drainage. ENT: Pharynx normal. Airway patent. NECK: Trachea midline. CHEST: No reproducible tenderness over the left chest. CARDIOVASCULAR: Regular rate and rhythm without murmurs, gallops, or rubs. RESPIRATORY: Clear to auscultation. Breath sounds equal bilaterally. No wheezes , rales, or rhonchi. GASTROINTESTINAL: Abdomen soft, non-tender, nondistended. MUSCULOSKELETAL: No lower extremity edema or calf pain bilaterally. NEUROLOGICAL: Awake and alert. Motor grossly within normal limits. Five out of 5 muscle strength in bilateral arms and legs. Normal speech. Procedures sp cardiac catheterization Medications and IVs Current Medications Medications (Trade) Dose Ordered Sig/Lana Route Start Time Stop Time Status Last Admin (NS Flush) 2 ml UNSCH PRN IV FLUSH 11/11/16 02:00 (NS Flush) 2 ml BID IV FLUSH 11/11/16 09:00 11/12/16 09:00 (Lipitor) 10 mg HS PO 11/11/16 21:00 11/11/16 20:41 (Trandate Inj) 10 mg Q6H PRN IV PUSH 11/11/16 11:15 (D50w (Vial) Inj) 50 ml UNSCH PRN IV 11/11/16 11:15 (Glucagon Inj) 1 mg UNSCH PRN OTHER 11/11/16 11:15 Nitroglycerin 0.4 mg 0.4 mg Q5M PRN SL 11/11/16 11:30 (Heparin-D5W Inj) 250 ml @ 0 mls/hr TITRATE IV 11/12/16 10:00 11/12/16 11:30 (Lopressor) 12.5 mg Q12HR PO 11/12/16 12:00 11/12/16 12:00 (Norvasc) 5 mg DAILY PO 11/12/16 14:00 11/12/16 14:50 (Pill Splitter) 1 ea UNSCH PRN OTHER 11/12/16 11:30 (NS Flush) 2 ml BID IV FLUSH 11/12/16 21:00 (NS Flush) 2 ml UNSCH PRN IV FLUSH 11/12/16 11:30 Urinary Catheter: No Vascular Central Line Catheter: No A/P Problem List: (1) Chest pain ICD Code: R07.9 Status: Acute (2) Elevated troponin ICD Code: R74.8 Status: Acute (3) LUCAS (acute kidney injury) ICD Code: N17.9 Status: Acute (4) Leukocytosis ICD Code: D72.829 Status: Acute (5) Anemia ICD Code: D64.9 Status: Acute Assessment and Plan 6 year old male with: 1. NSTEMI: Patient presented with chest pain and evaluation with troponins trending upward from 2.02-0.07. EKG telemetry with normal sinus rhythm and left axis deviation. EKG #[address]-T changes otherwise not present on following EKGs. Chest x-ray reviewed by me show no evidence of cardiomegaly or acute disease. As per medical records patient was not given aspirin due to allergy. Patient was placed on nitroglycerin as needed for chest pain. Cardiology was consulted and the patient underwent cardiac catheterization today 11/12/16 which showed multivessel CAD. Cardiac thoracic surgery has been consulted for bypass surgery. The meantime continue medical management with heparin drip, beta enrique, statin. 2. LUCAS: Patient presented with elevated creatinine of 1.5. Suspect prerenal azotemia. Creatinine much improved after IV fluid administration. Will check renal ultrasound 3. Leukocytosis: Likely stress related. Initially 15.2, down to 6.3. 4. Anemia: Patient with hemoglobin of 11.9 which trended down to 2.6 after administration IV fluids likely dilutional. Patient with normochromic normocytic anemia. Check stool guaiac and iron studies. Continue to monitor CBC. 5. Hypertension: Blood pressure initially elevated. Losartan was held initially due to LUCAS. Laboratories needed according to parameters. Before meals started on amlodipine 5 mg by mouth daily and metoprolol tartrate 12.5 mg by mouth twice a day. Continue. 6. Hyperlipidemia: Lipid profile ordered showed a total cholesterol 120 with an LDL of 69 and an HDL of 31.9. Continue statin. DM: Patient initially with hyperglycemia with blood sugar the 200s. Blood sugar now much improved. -Bedside Accu-Cheks with low-dose sliding scale insulin prn -Patient currently nothing by mouth. Hold SSI if nothing by mouth and BGL less than 200. -Hemoglobin A1c is 9.8. DVT prevention: SCDs GI prophylaxis: Heparin drip. Discharge Planning Jessica to monitor in the medical floor. The patient will need bypass surgery. Problem Qualifiers (1) Chest pain: Qualified Code: R07.9 - Chest pain, unspecified type Chaz Zacarias MD November 12, 2016 18:37
[2016-11-12 18:46] LABS: APTT (PATIENT) 49.3 SEC (24.3-30.1)
[2016-11-12] MEDS: ATORVASTATIN 10 MG TAB PO SCH (20:53)
[2016-11-13] VITALS (25 sets, daily range): BP systolic 105–132; BP diastolic 64–75; PULSE 50–60; RESP 16–18; TEMP 97.6–98.4; O2SAT 97–99
[2016-11-13 01:28] LABS: AUTOMATED NEUTROPHIL # 3.1 TH/MM3 (1.8-7.7); BASOPHIL # 0.1 TH/MM3 (0-0.2); EOSINOPHIL # 0.3 TH/MM3 (0-0.4); EOSINOPHIL % 4.2 % (0.0-4.0); HEMATOCRIT 27.8 % (39.0-51.0); HEMO FLAGS DIFF FINAL; LYMPH % 32.4 % (9.0-44.0); MEAN CELL VOLUME 91.2 FL (80.0-100.0); MEAN CORPUSCULAR HEMOGLOBIN 32.1 PG (27.0-34.0); MEAN CORPUSCULAR HGB CONC 35.1 % (32.0-36.0); MONO % 10.8 % (0.0-8.0); NEUT % 51.6 % (16.0-70.0); PLATELET COUNT 161 TH/MM3 (150-450); RED BLOOD COUNT 3.05 MIL/MM3 (4.50-5.90); RED CELL DISTRIBUTION WIDTH 14.1 % (11.6-17.2); WHITE BLOOD COUNT 6.1 TH/MM3 (4.0-11.0)
[2016-11-13 01:42] LABS: BICARBONATE 27.2 MEQ/L (21.0-32.0)
[2016-11-13] MEDS: INSULIN ASPART SUPPLEMENTAL SCALE SQ SCH ×4 (06:01→21:00)
[2016-11-13 08:01] LABS: APTT (PATIENT) 75.6 SEC (24.3-30.1)
[2016-11-13] MEDS: SODIUM CHLORIDE 0.9% FLUSH 10 ML FLUSH IV FLUSH SCH ×4 (10:16→21:01)
[2016-11-13] MEDS: amLODIPine BESYLATE 5 MG TAB PO SCH (10:17)
[2016-11-13] MEDS: METOPROLOL TARTRATE 25 MG TAB PO SCH ×2 (10:17→21:01)
--- NOTE | 2016-11-13 11:45 | PD.CARD.PN ---
Subjective Subjective Remarks pt without complaints Objective Medications Current Medications Medications (Trade) Dose Ordered Sig/Lana Route Start Time Stop Time Status Last Admin (NS Flush) 2 ml UNSCH PRN IV FLUSH 11/11/16 02:00 (NS Flush) 2 ml BID IV FLUSH 11/11/16 09:00 11/13/16 10:16 (Lipitor) 10 mg HS PO 11/11/16 21:00 11/12/16 20:53 (Trandate Inj) 10 mg Q6H PRN IV PUSH 11/11/16 11:15 (D50w (Vial) Inj) 50 ml UNSCH PRN IV 11/11/16 11:15 (Glucagon Inj) 1 mg UNSCH PRN OTHER 11/11/16 11:15 Nitroglycerin 0.4 mg 0.4 mg Q5M PRN SL 11/11/16 11:30 (Heparin-D5W Inj) 250 ml @ 0 mls/hr TITRATE IV 11/12/16 10:00 11/12/16 11:30 (Lopressor) 12.5 mg Q12HR PO 11/12/16 12:00 11/13/16 10:17 (Norvasc) 5 mg DAILY PO 11/12/16 14:00 11/13/16 10:17 (Pill Splitter) 1 ea UNSCH PRN OTHER 11/12/16 11:30 (NS Flush) 2 ml BID IV FLUSH 11/12/16 21:00 11/13/16 10:17 (NS Flush) 2 ml UNSCH PRN IV FLUSH 11/12/16 11:30 Vital Signs / I&O Vital Signs Date Time Temp Pulse Resp B/P Pulse Ox O2 Delivery O2 Flow Rate FiO2 11/13/16 06:00 55 11/13/16 05:11 53 11/13/16 04:18 55 11/13/16 03:00 53 11/13/16 03:00 98.4 56 16 105/64 99 11/13/16 02:00 57 11/13/16 01:00 56 11/13/16 00:00 56 11/12/16 23:00 56 11/12/16 23:00 98.3 60 18 100/56 98 11/12/16 22:00 62 11/12/16 21:00 66 11/12/16 20:00 76 11/12/16 19:00 98.7 72 18 138/69 100 11/12/16 19:00 64 11/12/16 18:00 62 11/12/16 17:00 58 11/12/16 16:00 60 11/12/16 15:00 60 11/12/16 14:00 66 11/12/16 13:00 60 11/12/16 12:00 97.9 65 18 130/73 99 11/12/16 12:00 64 11/12/16 12:00 97.9 65 18 130/73 99 I/O 11/12/16 11/12/16 11/12/16 11/13/16 11/13/16 11/13/16 07:00 15:00 23:00 07:00 15:00 23:00 Intake Total 240 ml 600 ml 442 ml Output Total 376 ml 200 ml Balance -136 ml 600 ml 242 ml Intake Oral 240 ml 600 ml 240 ml IV Total 202 ml Output Urine Total 375 ml 200 ml Stool Total 1 ml # Voids 2 4 # Bowel Movements 1 Physical Exam GENERAL: Well developed, well nourished. No acute distress. HEENT: Jugular venous pressure is normal. CHEST: Lungs clear to auscultation bilaterally. Unlabored respiratory effort. CARDIAC: Regular rate and rhythm without S3, S4, or murmur. ABDOMEN: Soft, nontender, no hepatosplenomegaly. Bowel sounds present. EXTREMITIES: No clubbing, cyanosis, or edema. Laboratory Laboratory Tests Test 11/12/16 11/12/16 11/13/16 11/13/16 17:45 18:00 01:18 07:26 Urine Color YELLOW Urine Turbidity CLEAR Urine pH 5.5 Urine Specific [place] 1.040 Urine Protein NEG mg/dL Urine Glucose (UA) 300 mg/dL Urine Ketones NEG mg/dL Urine Occult Blood TRACE Urine Nitrite NEG Urine Bilirubin NEG Urine Urobilinogen LESS THAN 2.0 MG/DL Urine Leukocyte Esterase NEG Urine RBC 2 /hpf Urine WBC LESS THAN 1 /hpf Urine Squamous Epithelial <1 /hpf Cells Microscopic Urinalysis Comment CULT NOT INDICATED Nasal Screen MRSA (PCR) MRSA NOT DETECTED Activated Partial 49.3 SEC 66.0 SEC 75.6 SEC Thromboplast Time White Blood Count 6.1 TH/MM3 Red Blood Count 3.05 MIL/MM3 Hemoglobin 9.8 GM/DL Hematocrit 27.8 % Mean Corpuscular Volume 91.2 FL Mean Corpuscular Hemoglobin 32.1 PG Mean Corpuscular Hemoglobin 35.1 % Concent Red Cell Distribution Width 14.1 % Platelet Count 161 TH/MM3 Mean Platelet Volume 8.7 FL Neutrophils (%) (Auto) 51.6 % Lymphocytes (%) (Auto) 32.4 % Monocytes (%) (Auto) 10.8 % Eosinophils (%) (Auto) 4.2 % Basophils (%) (Auto) 1.0 % Neutrophils # (Auto) 3.1 TH/MM3 Lymphocytes # (Auto) 2.0 TH/MM3 Monocytes # (Auto) 0.7 TH/MM3 Eosinophils # (Auto) 0.3 TH/MM3 Basophils # (Auto) 0.1 TH/MM3 CBC Comment DIFF FINAL Differential Comment Sodium Level 141 MEQ/L Potassium Level 4.0 MEQ/L Chloride Level 108 MEQ/L Carbon Dioxide Level 27.2 MEQ/L Anion Gap 6 MEQ/L Blood Urea Nitrogen 24 MG/DL Creatinine 1.57 MG/DL Estimat Glomerular Filtration 43 ML/MIN Rate Random Glucose 214 MG/DL Calcium Level 8.2 MG/DL Assessment and Plan Assessment and Plan NSTEMI- asymptomatic and awaiting CABG -no aspirin secondary to allergy - ok for OOB to chair -HR too low for BB, Cr to high for JUDY HTN- reasonable HL- statin Latonia Campbell MD November 13, 2016 11:45
[2016-11-13] MEDS: SODIUM CHLOR 0.9% 1000 ML INJ 1,000 ML IV SCH ×2 (12:15→20:58)
--- NOTE | 2016-11-13 14:28 | HHI.PR ---
Subjective Remarks The patient denies chest pain or shortness of breath Blood sugars noted to be very elevated. stable vital signs Objective Vitals Vital Signs Date Time Temp Pulse Resp B/P Pulse Ox O2 Delivery O2 Flow Rate FiO2 11/13/16 13:00 58 11/13/16 12:00 58 11/13/16 11:00 57 11/13/16 11:00 98.2 57 16 132/70 98 11/13/16 09:00 56 11/13/16 08:00 57 11/13/16 07:00 56 11/13/16 07:00 98.2 57 16 122/72 98 11/13/16 06:00 55 11/13/16 05:11 53 11/13/16 04:18 55 11/13/16 03:00 53 11/13/16 03:00 98.4 56 16 105/64 99 11/13/16 02:00 57 11/13/16 01:00 56 11/13/16 00:00 56 11/12/16 23:00 56 11/12/16 23:00 98.3 60 18 100/56 98 11/12/16 22:00 62 11/12/16 21:00 66 11/12/16 20:00 76 11/12/16 19:00 98.7 72 18 138/69 100 11/12/16 19:00 64 11/12/16 18:00 62 11/12/16 17:00 58 11/12/16 16:00 60 11/12/16 15:00 60 I/O 11/12/16 11/12/16 11/12/16 11/13/16 11/13/16 11/13/16 06:59 14:59 22:59 06:59 14:59 22:59 Intake Total 240 ml 600 ml 442 ml Output Total 376 ml 200 ml Balance -136 ml 600 ml 242 ml Intake Oral 240 ml 600 ml 240 ml IV Total 202 ml Output Urine Total 375 ml 200 ml Stool Total 1 ml # Voids 2 4 # Bowel Movements 1 Result Diagram: 11/13/16 0118 11/13/16 0118 Imaging Last Impressions Lower Extremity Ultrasound 11/12/16 0000 Signed Impressions: Service Date/Time: Saturday, November 12, 2016 13:56 - CONCLUSION: 1. Venous mapping as above. Gabriel Silva MD Carotid Artery Ultrasound 11/12/16 0000 Signed Impressions: Service Date/Time: Saturday, November 12, 2016 11:56 - CONCLUSION: 1. Right carotid : 2. Atherosclerotic plaquing with mild elevation of velocity ratio on the right. This would suggest a mild degree of stenosis in the origin of the right internal carotid. This is felt to be less than 50%%. 3. 4. Left carotid: 5. Moderate atherosclerotic plaquing at the bifurcation. No hemodynamically significant stenosis identified. 6. The left vertebral appears atretic with only limited flow. Gabriel Silva MD Chest X-Ray 11/11/16 0028 Signed Impressions: Service Date/Time: October 00:36 - CONCLUSION: No acute disease. Chaz Lui MD Objective Remarks GENERAL: This is a well-nourished, well-developed patient, in no apparent distress, lying in bed. SKIN: No rashes, ecchymoses or lesions. Warm and dry. HEAD: Atraumatic. Normocephalic. EYES: Extraocular motions intact. No scleral icterus. No injection or drainage. ENT: Pharynx normal. Airway patent. NECK: Trachea midline. CHEST: No reproducible tenderness over the left chest. CARDIOVASCULAR: Regular rate and rhythm without murmurs, gallops, or rubs. RESPIRATORY: Clear to auscultation. Breath sounds equal bilaterally. No wheezes , rales, or rhonchi. GASTROINTESTINAL: Abdomen soft, non-tender, nondistended. MUSCULOSKELETAL: No lower extremity edema or calf pain bilaterally. NEUROLOGICAL: Awake and alert. Motor grossly within normal limits. Five out of 5 muscle strength in bilateral arms and legs. Normal speech. Procedures sp cardiac catheterization Medications and IVs Current Medications Medications (Trade) Dose Ordered Sig/Lana Route Start Time Stop Time Status Last Admin (NS Flush) 2 ml UNSCH PRN IV FLUSH 11/11/16 02:00 (NS Flush) 2 ml BID IV FLUSH 11/11/16 09:00 11/13/16 10:16 (Lipitor) 10 mg HS PO 11/11/16 21:00 11/12/16 20:53 (Trandate Inj) 10 mg Q6H PRN IV PUSH 11/11/16 11:15 (D50w (Vial) Inj) 50 ml UNSCH PRN IV 11/11/16 11:15 (Glucagon Inj) 1 mg UNSCH PRN OTHER 11/11/16 11:15 Nitroglycerin 0.4 mg 0.4 mg Q5M PRN SL 11/11/16 11:30 (Heparin-D5W Inj) 250 ml @ 0 mls/hr TITRATE IV 11/12/16 10:00 11/12/16 11:30 (Lopressor) 12.5 mg Q12HR PO 11/12/16 12:00 11/13/16 10:17 (Norvasc) 5 mg DAILY PO 11/12/16 14:00 11/13/16 10:17 (Pill Splitter) 1 ea UNSCH PRN OTHER 11/12/16 11:30 (NS Flush) 2 ml BID IV FLUSH 11/12/16 21:00 11/13/16 10:17 Sodium Chloride 2 ml 2 ml UNSCH PRN IV FLUSH 11/12/16 11:30 (NS 1000 ml Inj) 1,000 ml @ 84 mls/hr [id number] IV 11/13/16 12:15 11/13/16 12:15 Urinary Catheter: No Vascular Central Line Catheter: No A/P Problem List: (1) Chest pain ICD Code: R07.9 Status: Acute (2) Elevated troponin ICD Code: R74.8 Status: Acute (3) LUCAS (acute kidney injury) ICD Code: N17.9 Status: Acute (4) Leukocytosis ICD Code: D72.829 Status: Resolved (5) Anemia ICD Code: D64.9 Status: Chronic (6) Diabetes mellitus with hyperglycemia ICD Code: E11.65 Status: Acute Assessment and Plan 6 year old male with: 1. NSTEMI: Patient presented with chest pain and evaluation with troponins trending upward from 2.02-0.07. EKG telemetry with normal sinus rhythm and left axis deviation. EKG #[address]-T changes otherwise not present on following EKGs. Chest x-ray reviewed by me show no evidence of cardiomegaly or acute disease. As per medical records patient was not given aspirin due to allergy. Patient was placed on nitroglycerin as needed for chest pain. Cardiology was consulted and the patient underwent cardiac catheterization today 11/12/16 which showed multivessel CAD. Cardiac thoracic surgery has been consulted for bypass surgery. The meantime continue medical management with heparin drip, beta enrique, statin. 2. LUCAS: Patient presented with elevated creatinine of 1.5. Suspected initial prerenal azotemia which improved with IV fluid administration. Creatinine trended down to 1.3 but again back up to 1.5 on 11/13/16. Upon discussion with patient's , she states they were referred by the patient's primary physician to see a substation inspector. Possible sick kidney stage III. Will try to obtain medical records to compare previous creatinine. The meantime I will place on gentle IV fluids and continue to monitor BUN/creatinine, Monisha I's and O's Will check renal ultrasound, if creatinine worsens then we will consider renal consultation. Also check some urine electrolytes. I will also check a spot urine creatinine ratio. 3. Leukocytosis: Likely stress related. Initially 15.2, down to 6.3. 4. Anemia: Patient with hemoglobin of 11.9 which trended down to 2.6 after administration IV fluids likely dilutional. Patient with normochromic normocytic anemia. Check stool guaiac and iron studies. Continue to monitor CBC. 5. Hypertension: Blood pressure initially elevated. Losartan was held initially due to LUCAS. Laboratories needed according to parameters. Before meals started on amlodipine 5 mg by mouth daily and metoprolol tartrate 12.5 mg by mouth twice a day. Continue. 6. Hyperlipidemia: Lipid profile ordered showed a total cholesterol 120 with an LDL of 69 and an HDL of 31.9. Continue statin. 7. Diabetes with hyperglycemia: Patient initially with hyperglycemia with blood sugar the 200s. Include an A1c 9.8. Diabetes is uncontrolled. I will start the patient insulin Levemir and continue with SSI with insulin NovoLog. Insulin Levemir should be cut down to half the dose if the patient is made nothing by mouth. Continue to monitor Accu-Cheks. DVT prevention: SCDs GI prophylaxis: Heparin drip. Discharge Planning Continue to monitor in the medical floor. The patient will need bypass surgery. Problem Qualifiers (1) Chest pain: Qualified Code: R07.9 - Chest pain, unspecified type (2) Anemia: Qualified Code: D64.9 - Anemia, unspecified type (3) Diabetes mellitus with hyperglycemia: Qualified Code: E11.65 - Type 2 diabetes mellitus with hyperglycemia, without long-term current use of insulin Chaz Zacarias MD November 13, 2016 14:28
--- NOTE | 2016-11-13 16:16 | EKG ---
Date Performed: 11/12/2016 Time Performed: 15:14:34 PTAGE: 76 years EKG: Sinus rhythm . Left axis deviation Possible anterior infarct - age undetermined Lateral T wave changes are nonspec ific Low QRS voltages in precordial leads Abnormal ECG PREVIOUS TRACING 11/11/2016 @06.12.52 Compared to prior tracing no significant change DOCTOR: Latonia Campbell Interpretating Date/Time 11/13/2016 16:14:11
[2016-11-13] MEDS: ATORVASTATIN 10 MG TAB PO SCH (20:59)
[2016-11-13] MEDS: HEPARIN-D5W INJ 250 ML IV SCH (21:08)
[2016-11-14] VITALS (26 sets, daily range): BP systolic 113–161; BP diastolic 60–88; PULSE 48–78; RESP 17–18; TEMP 97.4–98.5; O2SAT 97–98
[2016-11-14] MEDS: INSULIN ASPART SUPPLEMENTAL SCALE SQ SCH ×4 (05:45→21:53)
[2016-11-14] MEDS: SODIUM CHLORIDE 0.9% FLUSH 10 ML FLUSH IV FLUSH SCH ×4 (08:22→20:22)
[2016-11-14] MEDS: amLODIPine BESYLATE 5 MG TAB PO SCH (08:22)
[2016-11-14] MEDS: METOPROLOL TARTRATE 25 MG TAB PO SCH ×3 (08:23→20:08)
--- NOTE | 2016-11-14 08:59 | PD.CAR.PN ---
CVT Progress Note Subjective/Hospital Course: OR in am Objective: Vital Signs Date Time Temp Pulse Resp B/P Pulse Ox O2 Delivery O2 Flow Rate FiO2 11/14/16 08:31 98 Room Air 11/14/16 08:00 57 11/14/16 07:30 51 11/14/16 07:30 98.5 58 17 139/65 98 11/14/16 06:00 52 11/14/16 05:00 52 11/14/16 04:00 97.9 62 18 127/77 98 11/14/16 04:00 51 11/14/16 04:00 Room Air 11/14/16 03:00 48 11/14/16 02:00 48 11/14/16 01:00 50 11/14/16 00:00 97.4 53 18 113/60 97 11/14/16 00:00 48 11/14/16 00:00 Room Air 11/13/16 23:00 50 11/13/16 22:00 52 11/13/16 21:00 56 11/13/16 20:00 Room Air 11/13/16 20:00 98.1 57 18 123/73 99 11/13/16 20:00 58 11/13/16 19:48 98 11/13/16 19:00 58 11/13/16 18:04 60 11/13/16 17:00 59 11/13/16 16:00 52 11/13/16 15:52 98 11/13/16 15:00 97.6 54 16 124/75 97 11/13/16 14:00 54 11/13/16 13:00 58 11/13/16 12:00 58 11/13/16 11:00 57 11/13/16 11:00 98.2 57 16 132/70 98 11/13/16 09:00 56 Labs: Laboratory Tests Test 11/14/16 07:23 Blood Type B POSITIVE Antibody Screen NEGATIVE Crossmatch Leukocyte-Reduced Red Blood Cells Blood Bank Comment Result Diagram: 11/13/168 11/13/168 (1) AMI (acute myocardial infarction) (2) CAD in [place] artery (3) Left ventricular systolic dysfunction Rolando Arguello MD November 14, 2016 08:59
[2016-11-14 09:42] LABS: APTT (PATIENT) 77.2 SEC (24.3-30.1)
--- NOTE | 2016-11-14 09:56 | PD.CARD.PN ---
Subjective Subjective Remarks Pt without complaints Objective Medications Current Medications Medications (Trade) Dose Ordered Sig/Lana Route Start Time Stop Time Status Last Admin (NS Flush) 2 ml UNSCH PRN IV FLUSH 11/11/16 02:00 (NS Flush) 2 ml BID IV FLUSH 11/11/16 09:00 11/14/16 08:22 (Lipitor) 10 mg HS PO 11/11/16 21:00 11/13/16 20:59 (Trandate Inj) 10 mg Q6H PRN IV PUSH 11/11/16 11:15 (D50w (Vial) Inj) 50 ml UNSCH PRN IV 11/11/16 11:15 (Glucagon Inj) 1 mg UNSCH PRN OTHER 11/11/16 11:15 Nitroglycerin 0.4 mg 0.4 mg Q5M PRN SL 11/11/16 11:30 (Heparin-D5W Inj) 250 ml @ 0 mls/hr TITRATE IV 11/12/16 10:00 11/13/16 21:08 (Lopressor) 12.5 mg Q12HR PO 11/12/16 12:00 11/14/16 09:35 (Norvasc) 5 mg DAILY PO 11/12/16 14:00 11/14/16 08:22 (Pill Splitter) 1 ea UNSCH PRN OTHER 11/12/16 11:30 (NS Flush) 2 ml BID IV FLUSH 11/12/16 21:00 11/13/16 21:01 Sodium Chloride 2 ml 2 ml UNSCH PRN IV FLUSH 11/12/16 11:30 (NS 1000 ml Inj) 1,000 ml @ 84 mls/hr [id number] IV 11/13/16 12:15 11/13/16 20:58 Vital Signs / I&O Vital Signs Date Time Temp Pulse Resp B/P Pulse Ox O2 Delivery O2 Flow Rate FiO2 11/14/16 09:31 78 161/86 11/14/16 09:00 67 11/14/16 08:31 98 Room Air 11/14/16 08:00 57 11/14/16 07:30 51 11/14/16 07:30 98.5 58 17 139/65 98 11/14/16 06:00 52 11/14/16 05:00 52 11/14/16 04:00 97.9 62 18 127/77 98 11/14/16 04:00 51 11/14/16 04:00 Room Air 11/14/16 03:00 48 11/14/16 02:00 48 11/14/16 01:00 50 11/14/16 00:00 97.4 53 18 113/60 97 11/14/16 00:00 48 11/14/16 00:00 Room Air 11/13/16 23:00 50 11/13/16 22:00 52 11/13/16 21:00 56 11/13/16 20:00 Room Air 11/13/16 20:00 98.1 57 18 123/73 99 11/13/16 20:00 58 11/13/16 19:48 98 11/13/16 19:00 58 11/13/16 18:04 60 11/13/16 17:00 59 11/13/16 16:00 52 11/13/16 15:52 98 11/13/16 15:00 97.6 54 16 124/75 97 11/13/16 14:00 54 11/13/16 13:00 58 11/13/16 12:00 58 11/13/16 11:00 57 11/13/16 11:00 98.2 57 16 132/70 98 I/O 11/13/16 11/13/16 11/13/16 11/14/16 11/14/16 11/14/16 07:00 15:00 23:00 07:00 15:00 23:00 Intake Total 442 ml 1248 ml 1160 ml 240 ml Output Total 200 ml 400 ml 350 ml Balance 242 ml 848 ml 1160 ml -110 ml Intake Oral 240 ml 720 ml 240 ml IV Total 202 ml 528 ml 1160 ml Output Urine Total 200 ml 400 ml 350 ml Stool Total 0 ml # Bowel Movements 1 Physical Exam GENERAL: Well developed, well nourished. No acute distress. HEENT: Jugular venous pressure is normal. CHEST: Lungs clear to auscultation bilaterally. Unlabored respiratory effort. CARDIAC: Regular rate and rhythm without S3, S4, or murmur. ABDOMEN: Soft, nontender, no hepatosplenomegaly. Bowel sounds present. EXTREMITIES: No clubbing, cyanosis, or edema. Laboratory Laboratory Tests Test 11/13/16 11/14/16 11/14/16 19:20 07:23 09:12 Urine Random Creatinine 164 MG/DL Urine Random Total Protein 30 MG/DL Urine Random Sodium 81 MEQ/L Urine Random Potassium 45 MEQ/L Urine Protein/Creatinine Ratio 0.18 Blood Type B POSITIVE B POSITIVE Antibody Screen NEGATIVE Crossmatch Leukocyte-Reduced Red Blood Cells Blood Bank Comment Activated Partial 77.2 SEC Thromboplast Time Assessment and Plan Problem List: (1) AMI (acute myocardial infarction) (2) CAD in [place] artery (3) Left ventricular systolic dysfunction Assessment and Plan NSTEMI- asymptomatic and awaiting CABG -no aspirin secondary to allergy HTN- reasonable HL- statin Latonia Campbell MD November 14, 2016 09:56
--- NOTE | 2016-11-14 10:02 | RADRPT ---
EXAM DATE/TIME: 11/14/2016 08:57 [facility] COMPARISON: No previous studies available for comparison. INDICATIONS : Abnormal labs. MEDICAL HISTORY : Hypercholesterolemia. Hypertension. Renal calculi. SURGICAL HISTORY : Tonsillectomy. Appendectomy. ENCOUNTER: Initial ACUITY: 1 day PAIN SCORE: 2/10 LOCATION: Bilateral flank MEASUREMENTS: RIGHT KIDNEY: 10.5 x 5.9 x 6.6 cm LEFT KIDNEY: 12.8 x 6.0 x 6.0 cm FINDINGS: RIGHT KIDNEY: Renal cortex is normal in thickness and echotexture. No hydronephrosis, stone, or mass. LEFT KIDNEY: 2.8 x 2.3 x 2.7 cm are upper pole simple cyst. BLADDER: Within normal limits given the degree of distension. CONCLUSION: 1. Left renal cysts. Scott Hale MD on November 14, 2016 at 10:00 Board Certified Radiologist. This report was verified electronically.
[2016-11-14 10:59] LABS: BICARBONATE 25.9 MEQ/L (21.0-32.0)
[2016-11-14] MEDS: SODIUM CHLOR 0.9% 1000 ML INJ 1,000 ML IV SCH (11:42)
--- NOTE | 2016-11-14 16:19 | HHI.PR ---
Subjective Remarks denies cp/sob stable vital signs Objective Vitals Vital Signs Date Time Temp Pulse Resp B/P Pulse Ox O2 Delivery O2 Flow Rate FiO2 11/14/16 15:19 55 11/14/16 15:19 97.8 55 18 137/77 98 11/14/16 14:00 59 11/14/16 13:07 97 21 11/14/16 13:00 58 11/14/16 12:00 59 11/14/16 11:00 98.3 58 18 151/75 98 11/14/16 11:00 58 11/14/16 10:00 56 11/14/16 09:31 78 161/86 11/14/16 09:00 67 11/14/16 08:31 98 Room Air 11/14/16 08:00 57 11/14/16 07:30 51 11/14/16 07:30 98.5 58 17 139/65 98 11/14/16 06:00 52 11/14/16 05:00 52 11/14/16 04:00 97.9 62 18 127/77 98 11/14/16 04:00 51 11/14/16 04:00 Room Air 11/14/16 03:00 48 11/14/16 02:00 48 11/14/16 01:00 50 11/14/16 00:00 97.4 53 18 113/60 97 11/14/16 00:00 48 11/14/16 00:00 Room Air 11/13/16 23:00 50 11/13/16 22:00 52 11/13/16 21:00 56 11/13/16 20:00 Room Air 11/13/16 20:00 98.1 57 18 123/73 99 11/13/16 20:00 58 11/13/16 19:48 98 11/13/16 19:00 58 11/13/16 18:04 60 11/13/16 17:00 59 I/O 11/13/16 11/13/16 11/13/16 11/14/16 11/14/16 11/14/16 07:00 15:00 23:00 07:00 15:00 23:00 Intake Total 442 ml 1248 ml 1160 ml 240 ml Output Total 200 ml 400 ml 350 ml Balance 242 ml 848 ml 1160 ml -110 ml Intake Oral 240 ml 720 ml 240 ml IV Total 202 ml 528 ml 1160 ml Output Urine Total 200 ml 400 ml 350 ml Stool Total 0 ml # Bowel Movements 1 Result Diagram: 11/13/16 0118 11/14/16 1036 Imaging Last Impressions Renal Ultrasound 11/14/16 0000 Signed Impressions: Service Date/Time: Monday, November 14, 2016 08:57 - CONCLUSION: 1. Left renal cysts. Scott Hale MD Lower Extremity Ultrasound 11/12/16 0000 Signed Impressions: Service Date/Time: Saturday, November 12, 2016 13:56 - CONCLUSION: 1. Venous mapping as above. Gabriel Silva MD Carotid Artery Ultrasound 11/12/16 0000 Signed Impressions: Service Date/Time: Saturday, November 12, 2016 11:56 - CONCLUSION: 1. Right carotid : 2. Atherosclerotic plaquing with mild elevation of velocity ratio on the right. This would suggest a mild degree of stenosis in the origin of the right internal carotid. This is felt to be less than 50%%. 3. 4. Left carotid: 5. Moderate atherosclerotic plaquing at the bifurcation. No hemodynamically significant stenosis identified. 6. The left vertebral appears atretic with only limited flow. Gabriel Silva MD Chest X-Ray 11/11/16 0028 Signed Impressions: Service Date/Time: October 00:36 - CONCLUSION: No acute disease. Chaz Lui MD Objective Remarks GENERAL: This is a well-nourished, well-developed patient, in no apparent distress, lying in bed. SKIN: No rashes, ecchymoses or lesions. Warm and dry. HEAD: Atraumatic. Normocephalic. EYES: Extraocular motions intact. No scleral icterus. No injection or drainage. ENT: Pharynx normal. Airway patent. NECK: Trachea midline. CHEST: No reproducible tenderness over the left chest. CARDIOVASCULAR: Regular rate and rhythm without murmurs, gallops, or rubs. RESPIRATORY: Clear to auscultation. Breath sounds equal bilaterally. No wheezes , rales, or rhonchi. GASTROINTESTINAL: Abdomen soft, non-tender, nondistended. MUSCULOSKELETAL: No lower extremity edema or calf pain bilaterally. NEUROLOGICAL: Awake and alert. Motor grossly within normal limits. Five out of 5 muscle strength in bilateral arms and legs. Normal speech. Procedures sp cardiac catheterization Medications and IVs Current Medications Medications (Trade) Dose Ordered Sig/Lana Route Start Time Stop Time Status Last Admin (NS Flush) 2 ml UNSCH PRN IV FLUSH 11/11/16 02:00 (NS Flush) 2 ml BID IV FLUSH 11/11/16 09:00 11/14/16 08:22 (Lipitor) 10 mg HS PO 11/11/16 21:00 11/13/16 20:59 (Trandate Inj) 10 mg Q6H PRN IV PUSH 11/11/16 11:15 (D50w (Vial) Inj) 50 ml UNSCH PRN IV 11/11/16 11:15 (Glucagon Inj) 1 mg UNSCH PRN OTHER 11/11/16 11:15 Nitroglycerin 0.4 mg 0.4 mg Q5M PRN SL 11/11/16 11:30 (Heparin-D5W Inj) 250 ml @ 0 mls/hr TITRATE IV 11/12/16 10:00 11/13/16 21:08 (Lopressor) 12.5 mg Q12HR PO 11/12/16 12:00 11/14/16 09:35 (Norvasc) 5 mg DAILY PO 11/12/16 14:00 11/14/16 08:22 (Pill Splitter) 1 ea UNSCH PRN OTHER 11/12/16 11:30 (NS Flush) 2 ml BID IV FLUSH 11/12/16 21:00 11/13/16 21:01 Sodium Chloride 2 ml 2 ml UNSCH PRN IV FLUSH 11/12/16 11:30 (NS 1000 ml Inj) 1,000 ml @ 84 mls/hr [id number] IV 11/13/16 12:15 11/14/16 11:42 A/P Problem List: (1) Chest pain ICD Code: R07.9 Status: Resolved (2) Elevated troponin ICD Code: R74.8 Status: Acute (3) LUCAS (acute kidney injury) ICD Code: N17.9 Status: Acute (4) Leukocytosis ICD Code: D72.829 Status: Resolved (5) Anemia ICD Code: D64.9 Status: Chronic (6) Diabetes mellitus with hyperglycemia ICD Code: E11.65 Status: Acute Assessment and Plan 6 year old male with: 1. NSTEMI: Patient presented with chest pain and evaluation with troponins trending upward from 2.02-0.07. EKG telemetry with normal sinus rhythm and left axis deviation. EKG #[address]-T changes otherwise not present on following EKGs. Chest x-ray reviewed by me show no evidence of cardiomegaly or acute disease. As per medical records patient was not given aspirin due to allergy. Patient was placed on nitroglycerin as needed for chest pain. Cardiology was consulted and the patient underwent cardiac catheterization today 11/12/16 which showed multivessel CAD. Cardiac thoracic surgery has been consulted for bypass surgery. The meantime continue medical management with heparin drip, beta enrique, statin. 2. LUCAS: Patient presented with elevated creatinine of 1.5. Suspected initial prerenal azotemia which improved with IV fluid administration. Creatinine trended down to 1.3 but again back up to 1.5 on 11/13/16. Upon discussion with patient's , she states they were referred by the patient's primary physician to see a partner. Possible CKD stage III. Continue to monitor BUN/creatinine, strict input and output. 11/14 Renal US shows left renal cysts. Creatinine improving with IV fluids - back down to 1.3. DC IV fluids. 3. Leukocytosis: Likely stress related. Initially 15.2, down to 6.3. 4. Anemia: Patient with hemoglobin of 11.9 which trended down to 2.6 after administration IV fluids likely dilutional. Patient with normochromic normocytic anemia. Check stool guaiac and iron studies. Continue to monitor CBC. 5. Hypertension: Blood pressure initially elevated. Losartan was held initially due to LUCAS. Laboratories needed according to parameters. Before meals started on amlodipine 5 mg by mouth daily and metoprolol tartrate 12.5 mg by mouth twice a day. Continue. 6. Hyperlipidemia: Lipid profile ordered showed a total cholesterol 120 with an LDL of 69 and an HDL of 31.9. Continue statin. 7. Diabetes with hyperglycemia: Patient initially with hyperglycemia with blood sugar the 200s. Include an A1c 9.8. Diabetes is uncontrolled. Continue insulin Levemir and continue with SSI with insulin NovoLog. Insulin Levemir should be cut down to half the dose if the patient is made nothing by mouth. Continue to monitor Accu-Cheks. Blood sugar acceptable today. DVT prevention: SCDs GI prophylaxis: Heparin drip. Discharge Planning Continue to monitor in the medical floor. The patient will need bypass surgery. Problem Qualifiers (1) Chest pain: Qualified Code: R07.9 - Chest pain, unspecified type (2) Anemia: Qualified Code: D64.9 - Anemia, unspecified type (3) Diabetes mellitus with hyperglycemia: Qualified Code: E11.65 - Type 2 diabetes mellitus with hyperglycemia, without long-term current use of insulin Chaz Zacarias MD November 14, 2016 16:19
[2016-11-14 16:33] LABS: APTT (PATIENT) 48.3 SEC (24.3-30.1)
[2016-11-14] MEDS: ATORVASTATIN 10 MG TAB PO SCH (20:08)
[2016-11-14] MEDS: HEPARIN-D5W INJ 250 ML IV SCH (20:11)
[2016-11-14 23:17] LABS: APTT (PATIENT) 44.9 SEC (24.3-30.1)
[2016-11-15] VITALS (16 sets, daily range): BP systolic 115–156; BP diastolic 53–92; PULSE 53–99; RESP 10–18; TEMP 97.2–98.3; O2SAT 95–99
[2016-11-15] MEDS ORDERED: CALCIUM CHLORIDE 10% SOLN 1 GRAM/10 ML SYR IV ONE (05:00)
[2016-11-15] MEDS ORDERED: NEOSTIGMINE METHYLSULFATE 10 MG/10 ML VIAL IV PUSH ONE (05:00)
[2016-11-15] MEDS ORDERED: METOPROLOL TARTRATE 5 MG/5 ML VIAL IV PUSH ONE (05:00)
[2016-11-15] MEDS ORDERED: MAGNESIUM SULFATE 1000 MG/2 ML VIAL (PED) IV ONE (05:00)
[2016-11-15] MEDS ORDERED: VECURONIUM BROMIDE 10 MG VIAL IV ONE (05:00)
[2016-11-15] MEDS ORDERED: HEPARIN SODIUM - SQ 10,000 UNITS/ML VIAL SQ ONE (05:00)
[2016-11-15] MEDS ORDERED: LIDOCAINE HCL 1% 30 ML VIAL OTHER ONE (05:00)
[2016-11-15] MEDS ORDERED: PROTAMINE SULFATE 250 MG/25 ML VIAL IV ONE (05:00)
[2016-11-15] MEDS ORDERED: ARTIFICIAL TEARS OPTH OINT 3.5 APPLIC/3.5 GM TUBO ONE (05:00)
[2016-11-15] MEDS ORDERED: PHENYLEPHRINE HCL 10 MG/ML VIAL IV ONE (05:00)
[2016-11-15 06:05] LABS: AUTOMATED NEUTROPHIL # 3.2 TH/MM3 (1.8-7.7); BASOPHIL % 0.6 % (0.0-2.0); EOSINOPHIL # 0.2 TH/MM3 (0-0.4); EOSINOPHIL % 4.2 % (0.0-4.0); HEMO FLAGS DIFF FINAL; LYMPH % 28.2 % (9.0-44.0); LYMPHOCYTE # 1.6 TH/MM3 (1.0-4.8); MEAN CELL VOLUME 92.1 FL (80.0-100.0); MEAN CORPUSCULAR HGB CONC 34.7 % (32.0-36.0); MONO % 10.8 % (0.0-8.0); NEUT % 56.2 % (16.0-70.0); PLATELET COUNT 140 TH/MM3 (150-450); RED BLOOD COUNT 3.04 MIL/MM3 (4.50-5.90); RED CELL DISTRIBUTION WIDTH 14.2 % (11.6-17.2); WHITE BLOOD COUNT 5.8 TH/MM3 (4.0-11.0)
[2016-11-15] MEDS ORDERED: VANCOMYCIN HCL 1000 MG VIAL ONE (06:05)
[2016-11-15] MEDS ORDERED: HEPARIN SODIUM - IV 10,000 UNITS/10 ML VIAL ONE (06:05)
[2016-11-15 06:31] LABS: BICARBONATE 26.1 MEQ/L (21.0-32.0)
[2016-11-15] MEDS: INSULIN ASPART SUPPLEMENTAL SCALE SQ SCH ×2 (06:39→21:00)
[2016-11-15] MEDS ORDERED: HEPARIN SODIUM - SQ 10,000 UNITS/ML VIAL ONE (07:08)
[2016-11-15] MEDS ORDERED: POTASSIUM CHLORIDE 40 MEQ/20 ML VIAL ONE (07:08)
[2016-11-15] MEDS ORDERED: HEPARIN SODIUM - SQ 10,000 UNITS/ML VIAL IVF ONE (07:30)
[2016-11-15] MEDS ORDERED: VANCOMYCIN HCL 1000 MG VIAL OTHER ONE (07:30)
[2016-11-15] MEDS ORDERED: ceFAZolin 2 GM PREMIX 50 ML ONE ×2 (08:03→11:25)
[2016-11-15] MEDS ORDERED: LACTATED RINGER'S 1000 ML INJ 500 ML IV PRN (11:47)
[2016-11-15] MEDS ORDERED: DOBUTamine PREMIX DRIP 250 ML IV SCH (11:47)
--- NOTE | 2016-11-15 11:56 | PD.OP ---
cc: Rolando Arguello MD; Shady Murray MD Operative Report Date of Surgery: November 15, 2016 Preoperative Diagnosis: Postoperative Diagnosis: Procedure: 1. Urgent Off-pump Coronary Artery Bypass Grafting x 3 with left internal mammary artery (PARRA) left anterior descending (LAD), reverse saphenous vein graft to Diagonal 1, reverse saphenous vein graft to the distal Right Coronary Artery (RCA) 2. Left Leg Endoscopic Vein [place] 3. Intraoperative Vein Mapping. . Surgeon: Rolando Arguello Mill Controller(s): Shi Holly Operation and Findings: PREPROCEDURE DIAGNOSES 1. Severe Two Vessel Coronary Artery Disease. 2. Acute Myocardial Infarction (NSTEMI) 3. Chronic Renal Insufficiency 4. Moderate left Ventricular Dysfunction POSTPROCEDURE DIAGNOSES Same SURGICAL PROCEDURE 1. Urgent Off-pump Coronary Artery Bypass Grafting x 3 with left internal mammary artery (PARRA) left anterior descending (LAD), reverse saphenous vein graft to Diagonal 1, reverse saphenous vein graft to the distal Right Coronary Artery (RCA) 2. Left Leg Endoscopic Vein [place] 3. Intraoperative Vein Mapping. SURGEON Rolando Arguello MD [employer] HOUSE OPERATOR HARIKA Ramos ANESTHESIA General endotracheal PEOPLESOFT PROGRAMMER GERARDO Martinez MD PREPARATION ChloraPrep. COUNTS Needle, sponge, and instrument counts were correct. DRAINS Two 32-[place] mediastinal tubes. COMPLICATIONS None. INDICATIONS FOR PROCEDURE The patient is a 76-year-old presenting with chest pain and AMI. Patient was noted to have two-vessel coronary artery disease. The patient is being brought to the operating room for surgical revascularization therapy. PROCEDURE Patient was brought to the operating room and placed supine on the OR table. Following the induction of adequate general endotracheal anesthesia and placement of appropriate monitoring devices, intraoperative vein mapping was performed which revealed suitable-caliber conduit in the left thigh. The patient was then prepped and draped in standard sterile fashion. Next, 2500 units of intravenous heparin was given. The left greater saphenous vein was harvested endoscopically. This appeared to be a useable-caliber conduit. Simultaneously, a median sternotomy was performed and the left internal mammary artery dissected free off the posterior sternal table. The patient was systemically heparinized and anticoagulation monitored by serial ACT measurements. The internal mammary artery had excellent pulsatile flow in it and was a good-caliber conduit. The pericardium was then divided in the midline , the cradle created and targets analyzed. At this point, all anastomoses were performed in a beating-heart fashion using the Maquet stabilizing system with intracoronary shunts. The left internal mammary artery was anastomosed to the LAD (2 mm) in an end-to-side fashion using a running 7-0 Prolene. The segment of reverse saphenous vein was anastomosed to the D1 (1.5 mm) in an end-to-side fashion using a running 7-0 Prolene. The final segment of saphenous vein graft was then anastomosed distal RCA (2.75 mm) in an end-to-side fashion using 7-0 Prolene. The proximal anastomoses were then constructed to the ascending aorta in a running manner using 6-0 Prolene. All anastomotic sites were inspected and appeared to be hemostatic and patent. Protamine solution was given. Strict hemostasis was assured. The closure was undertaken. 2 chest tubes were placed. The pericardium was reapproximated in the midline. The sternum was approximated using sternal wires. The muscular and fascial layer were then closed in 3 layers. The endoscopic vein harvest site was closed in 2 layers. The patient tolerated the procedure well and was transferred to CVICU in stable condition. Rolando Arguello MD November 15, 2016 11:56
[2016-11-15] MEDS ORDERED: CLEVIDIPINE INJ 50 ML IV SCH (12:00)
[2016-11-15] MEDS ORDERED: EPINEPHrine (1:1000) INJ 4 MG in DEXTROSE 5% IN WATER INJ 246 ML IV SCH ×2 (12:00)
[2016-11-15] MEDS ORDERED: CALCIUM CHLORIDE INJ 1 GM in SODIUM CHLORIDE 0.9% INJ 100 ML IV PRN (12:00)
[2016-11-15] MEDS ORDERED: INSULIN REGULAR (IV INFUSION) 100 UNITS in SODIUM CHLORIDE 0.9% INJ 99 ML IV SCH (12:00)
[2016-11-15] MEDS ORDERED: NITROGLYCERIN-DEXTROSE INJ 250 ML IV SCH (12:00)
[2016-11-15] MEDS ORDERED: SODIUM CHLORID 0.9% 500 ML INJ 500 ML IV ONE (12:00)
[2016-11-15] MEDS ORDERED: NORMOSOL R INJ 2,000 ML IV ONE (12:00)
[2016-11-15] MEDS ORDERED: ACETAMINOPHEN 325 MG TAB PO PRN (12:00)
[2016-11-15] MEDS ORDERED: DEXMEDETOMIDINE INJ 200 MCG in SODIUM CHLORIDE 0.9% INJ 50 ML IV SCH (12:00)
[2016-11-15] MEDS ORDERED: RESP: RACEPINEPHRINE 2.25% 0.5 ML NEB NEB PRN (12:00)
[2016-11-15] MEDS ORDERED: ONDANSETRON HCL 4 MG/2 ML VIAL IV PUSH PRN (12:00)
[2016-11-15] MEDS ORDERED: MORPHINE SULFATE 4 MG/ML INJ IV PRN (12:00)
[2016-11-15] MEDS ORDERED: DOPamine INJ PREMIX 500 ML IV SCH (12:00)
[2016-11-15] MEDS ORDERED: SODIUM CHLOR 0.9% 250 ML INJ 250 ML IV ONE (12:00)
[2016-11-15] MEDS ORDERED: ePHEDrine/NS 25 MG/5 ML SYR IV ONE (12:00)
[2016-11-15] MEDS ORDERED: SODIUM CHLORIDE 0.9% FLUSH 10 ML FLUSH IV FLUSH PRN (12:00)
[2016-11-15] MEDS ORDERED: ACETAMINOPHEN 650 MG SUPP RECTAL PRN (12:00)
[2016-11-15] MEDS ORDERED: PROTAMINE SULFATE 50 MG/5 ML VIAL IV ONE (12:00)
[2016-11-15] MEDS ORDERED: CALCIUM CHLORIDE 10% 1 GRAM/10 ML VIAL IV PRN (12:00)
[2016-11-15] MEDS ORDERED: METOPROLOL TARTRATE 5 MG/5 ML VIAL IV PUSH PRN (12:00)
[2016-11-15] MEDS ORDERED: POTASSIUM CHLOR 20 MEQ PREMIX 100 ML IV PRN ×2 (12:00)
[2016-11-15] MEDS ORDERED: DEXTROSE 50% IN WATER 50 ML VIAL(D50) IV PUSH PRN (12:00)
[2016-11-15] MEDS ORDERED: hydrALAZINE HCL 20 MG/ML VIAL IV PRN (12:00)
[2016-11-15] MEDS ORDERED: MEPERIDINE HCL 25 MG/ML VIAL IV PRN (12:00)
[2016-11-15] MEDS ORDERED: ACETAMINOPHEN/HYDROcodone 325 MG/5 MG TAB PO PRN (12:00)
[2016-11-15] MEDS ORDERED: PHENYLEPHRINE INJ 40 MG in DEXTROSE 5% IN WATE 500 ML INJ 496 ML IV SCH ×2 (12:00)
[2016-11-15] MEDS ORDERED: POTASSIUM CHLORIDE 20 MEQ CONTROLLED RELEASE TAB PO PRN ×2 (12:00)
[2016-11-15] MEDS ORDERED: MAGNESIUM SULFATE INJ 2 GM in SODIUM CHLORIDE 0.9% INJ 100 ML IV PRN ×4 (12:00)
[2016-11-15] MEDS ORDERED: LACTATED RINGER'S 1000 ML INJ 3,000 ML IV ONE (12:00)
[2016-11-15] MEDS ORDERED: SODIUM CHLORIDE 0.9% INJ 200 ML IV ONE (12:00)
[2016-11-15] MEDS ORDERED: Post-op Orders (for Pharmacy) MISC OTHER ONE (12:30)
[2016-11-15] MEDS ORDERED: fentaNYL CITRATE 1000 MCG/20 ML VIAL ONE (12:45)
[2016-11-15] MEDS ORDERED: MIDAZOLAM HCL 5 MG/5 ML VIAL ONE (12:45)
[2016-11-15] MEDS: ACETAMINOPHEN 1000 MG/100 ML VIAL IV SCH ×2 (13:32→18:48)
[2016-11-15] MEDS: POTASSIUM CHLOR 20 MEQ PREMIX 100 ML IV PRN ×2 (13:34→17:50)
--- NOTE | 2016-11-15 14:02 | RADRPT ---
EXAM DATE/TIME: 11/15/2016 12:35 [facility] COMPARISON: CHEST SINGLE AP, November 11, 2016, 0:36. INDICATIONS : S/p cabg. MEDICAL HISTORY : Hypercholesterolemia. Hypertension diabetes SURGICAL HISTORY : None. ENCOUNTER: Initial ACUITY: 4 - 6 days PAIN SCORE: Non-responsive. LOCATION: Bilateral chest FINDINGS: Supine AP view of the chest demonstrates a normal-sized cardiac silhouette in this patient post media n sternotomy. Endotracheal tube tip is at the aortic knob level measuring approximately 2.1 cm from t he wilder. Nasogastric tube courses beyond the GE junction. Right IJ line distal tip is in the SVC. T here is a left chest tube and mediastinal drain present. No pneumothorax is visualized. Lungs are und erinflated. There is slight blunting of the left costophrenic sulcus. CONCLUSION: 1. Expected findings are present following recent CABG. There is slight blunting of the left costophr enic sulcus which may indicate trace pleural fluid. There is also mild atelectasis bilaterally. 2. Left chest tube is present and no pneumothorax is visualized. Mihai Paulino MD on November 15, 2016 at 13:59 Board Certified Radiologist. This report was verified electronically.
[2016-11-15] MEDS: ALBUMIN HUMAN 5% 12.5 GM/250 ML BOTTLE IV PRN (14:37)
[2016-11-15] MEDS: RESP: ALBUTEROL 2.5 MG/IPRATROPIUM 0.5 MG NEB (SCH) NEB ×2 (16:50→22:45)
[2016-11-15] MEDS: ceFAZolin 2 GM PREMIX 50 ML IV SCH (20:28)
[2016-11-15] MEDS: AMIODARONE 200 MG TAB PO SCH (20:29)
[2016-11-15] MEDS: ATORVASTATIN 10 MG TAB PO SCH (20:30)
[2016-11-15] MEDS ORDERED: SODIUM CHLORIDE 0.9% FLUSH 10 ML FLUSH IV FLUSH SCH (21:00)
[2016-11-15] MEDS: METOPROLOL TARTRATE 25 MG TAB PO SCH (21:00)
[2016-11-16] VITALS (22 sets, daily range): BP systolic 87–135; BP diastolic 48–67; PULSE 78–128; RESP 18–19; TEMP 98.1–98.6; O2SAT 92–100
[2016-11-16] MEDS: SODIUM CHLORIDE 0.9% FLUSH 10 ML FLUSH IV FLUSH SCH ×3 (01:33→21:09)
[2016-11-16] MEDS: ACETAMINOPHEN 1000 MG/100 ML VIAL IV SCH ×2 (01:34→06:10)
[2016-11-16] MEDS: RESP: ALBUTEROL 2.5 MG/IPRATROPIUM 0.5 MG NEB (SCH) NEB ×3 (04:00→20:32)
[2016-11-16] MEDS: ceFAZolin 2 GM PREMIX 50 ML IV SCH ×3 (04:04→21:09)
[2016-11-16] MEDS: ALBUMIN HUMAN 5% 12.5 GM/250 ML BOTTLE IV PRN (04:09)
[2016-11-16] MEDS: PANTOPRAZOLE SOD 40 MG DELAYED RELEASE TAB PO SCH (05:21)
--- NOTE | 2016-11-16 05:43 | RADRPT ---
EXAM DATE/TIME: 11/16/2016 05:12 [facility] COMPARISON: CHEST SINGLE AP, November 15, 2016, 12:35. INDICATIONS : Status post CABG. MEDICAL HISTORY : Hypercholesterolemia. Hypertension. Diabetes. SURGICAL HISTORY : CABG. ENCOUNTER: Subsequent ACUITY: 4 - 6 days PAIN SCORE: Non-responsive. LOCATION: Bilateral chest FINDINGS: Chest tube is present on the left side. Right IJ line is present with tip overlapping the expected re gion of the right atrium. No definite pneumothorax is seen for technique. There is atelectasis in the left midlung with slight perivascular parenchymal process worse on the left not changed. Previously seen NG tube and ET tube have been removed. There are lymph nodes within the mediastinum not signific antly changed and most likely benign.CONCLUSION: Previously seen NG tube and ET tube have been removed, otherwise not significantly changed. Angel Chavarria MD on November 16, 2016 at 5:40 Board Certified Radiologist. This report was verified electronically.
[2016-11-16 05:48] LABS: ANION GAP 11 MEQ/L (5-15); AST (GOT) 21 U/L (15-37); BICARBONATE 20.7 MEQ/L (21.0-32.0); BLOOD UREA NITROGEN 18 MG/DL (7-18); CHLORIDE 110 MEQ/L (98-107); GLOMERULAR FILTRATION RATE 48 ML/MIN (>89); POTASSIUM 4.1 MEQ/L (3.5-5.1); SODIUM (NA) 142 MEQ/L (136-145)
[2016-11-16 05:51] LABS: AUTOMATED NEUTROPHIL # 5.3 TH/MM3 (1.8-7.7); BASOPHIL % 0.4 % (0.0-2.0); EOSINOPHIL % 0.3 % (0.0-4.0); HEMATOCRIT 21.3 % (39.0-51.0); HEMO FLAGS DIFF FINAL; LYMPH % 13.8 % (9.0-44.0); MEAN CORPUSCULAR HEMOGLOBIN 32.3 PG (27.0-34.0); MEAN CORPUSCULAR HGB CONC 35.1 % (32.0-36.0); MONO % 10.1 % (0.0-8.0); NEUT % 75.4 % (16.0-70.0); PLATELET COUNT 122 TH/MM3 (150-450); RED BLOOD COUNT 2.31 MIL/MM3 (4.50-5.90); RED CELL DISTRIBUTION WIDTH 14.4 % (11.6-17.2)
[2016-11-16 05:52] LABS: ALKALINE PHOSPHATASE 72 U/L (45-117); ALT (GPT) 56 U/L (12-78); TOTAL BILIRUBIN ADULT 0.4 MG/DL (0.2-1.0)
[2016-11-16] MEDS: INSULIN ASPART SUPPLEMENTAL SCALE SQ SCH ×5 (06:11→21:35)
[2016-11-16] MEDS ORDERED: GLUCAGON 1 MG/ML VIAL OTHER PRN (08:30)
[2016-11-16] MEDS ORDERED: DEXTROSE 50% IN WATER 50 ML VIAL(D50) IV PRN (08:30)
[2016-11-16] MEDS ORDERED: INSULIN DETEMIR 100 UNITS/ML VIAL SQ ONE (08:30)
[2016-11-16] MEDS ORDERED: BISACODYL 10 MG SUPP RECTAL PRN (08:30)
[2016-11-16] MEDS ORDERED: SOD PHOSPHATE/SOD BIPHOSPHATE (ADULT) ENEMA 133ML RECTAL PRN (08:30)
[2016-11-16] MEDS: MAGNESIUM HYDROXIDE SUSP 30 ML CUP PO SCH (09:46)
[2016-11-16] MEDS: AMIODARONE 200 MG TAB PO SCH ×2 (09:46→21:10)
[2016-11-16] MEDS: CLOPIDOGREL 75 MG TAB PO SCH (09:46)
[2016-11-16] MEDS: DOCUSATE SODIUM 100 MG CAP PO SCH ×2 (09:47→21:10)
[2016-11-16] MEDS: FERROUS SULFATE 325 MG (65 MG ELEMENTAL IRON) TAB PO SCH ×2 (09:47→21:10)
[2016-11-16] MEDS: MULTIVITAMINS/MINERALS THERAPEUTIC TAB PO SCH (09:47)
--- NOTE | 2016-11-16 10:36 | RSPPFT ---
DATE OF PROCEDURE: 11/12/16 COMMENTS: Spirometry demonstrates an FEV1 of 1.4 at 53% of predicted, FVC of 2.4 at 69%, FEV1/FVC ratio is 59. The FEF 25-75 is 50%. Post-bronchodilator study was not performed. IMPRESSION: 1. Mild obstructive airways disease.
--- NOTE | 2016-11-16 12:15 | PD.CAR.PN ---
CVT Progress Note CVT: POD #: 1 Subjective/Hospital Course: 76/ male visiting from [place], [place] , Developed chest pain , ruled in for NSTEMI, underwent cardiac cath by Dr Murray showing multi vessel disease, EF 45% PMH: DM, HTN, HLP surgery: 11/15 1. Urgent Off-pump Coronary Artery Bypass Grafting x 3 with left internal mammary artery (PARRA) left anterior descending (LAD), reverse saphenous vein graft to Diagonal 1, reverse saphenous vein graft to the distal Right Coronary Artery (RCA) 2. Left Leg Endoscopic Vein [place] extubate post surgery without difficulty OR: 3000cc crystalloid, cell saver 250cc 11/16 BP labile this am, no pressors, start BB this pm if tolerates weaning off insulin gtt/ resume januvia in am will need clinical document improvement educator with HGB A1C 9.6 allergic to ASA, on plavix transfer to stepdown Objective: GENERAL: SKIN: Warm and dry.prevena dressing to chest, norm wrap to left leg HEAD: Normocephalic. EYES: No scleral icterus. No injection or drainage. NECK: Supple, trachea midline. No JVD or lymphadenopathy. CARDIOVASCULAR: Regular rate and rhythm without murmurs, gallops, or rubs. RESPIRATORY: Breath sounds equal bilaterally. No accessory muscle use. chest tube to wall suction, no air leak / drained 400cc/ 12 hrs GASTROINTESTINAL: Abdomen soft, non-tender, nondistended. MUSCULOSKELETAL: No cyanosis, or edema. BACK: Nontender without obvious deformity. No CVA tenderness. Vital Signs Date Time Temp Pulse Resp B/P Pulse Ox O2 Delivery O2 Flow Rate FiO2 11/16/16 11:42 81 11/16/16 11:41 98.3 81 18 113/60 97 Arterial Line 11/16/16 11:41 97 Nasal Cannula 4.00 11/16/16 07:30 78 11/16/16 07:30 98.6 80 18 88/50 95 11/16/16 07:30 95 Nasal Cannula 2.00 11/16/16 04:40 91 11/16/16 04:00 98.3 88 18 87/60 94 135/57 11/16/16 02:05 16 11/16/16 00:00 97 Nasal Cannula 2.00 11/16/16 00:00 98.1 99 18 98/52 97 109/48 5/22/17 23:55 99 11/15/16 22:45 99 Nasal Cannula 2.00 11/15/16 20:00 98.0 90 18 115/63 98 127/61 11/15/16 20:00 98 Nasal Cannula 2.00 11/15/16 19:30 89 11/15/16 15:30 97.9 82 16 98 130/54 11/15/16 15:30 82 11/15/16 15:00 98 Nasal Cannula 4.00 11/15/16 13:42 95 Nasal Cannula 6.00 11/15/16 13:15 95 Nasal Cannula 6 11/15/16 12:45 97 Mechanical Ventilator 40 11/15/16 12:30 99 Mechanical Ventilator 50 11/15/16 12:30 50 11/15/16 12:30 99 50 11/15/16 12:30 62 11/15/16 12:30 97.2 68 10 122/69 97 128/53 Labs: Laboratory Tests Test 11/16/16 05:15 White Blood Count 7.0 TH/MM3 (4.0-11.0) Red Blood Count 2.31 MIL/MM3 (4.50-5.90) Hemoglobin 7.5 GM/DL (13.0-17.0) Hematocrit 21.3 % (39.0-51.0) Mean Corpuscular Volume 92.0 FL (80.0-100.0) Mean Corpuscular Hemoglobin 32.3 PG (27.0-34.0) Mean Corpuscular Hemoglobin 35.1 % Concent (32.0-36.0) Red Cell Distribution Width 14.4 % (11.6-17.2) Platelet Count 122 TH/MM3 (150-450) Mean Platelet Volume 9.1 FL (7.0-11.0) Neutrophils (%) (Auto) 75.4 % (16.0-70.0) Lymphocytes (%) (Auto) 13.8 % (9.0-44.0) Monocytes (%) (Auto) 10.1 % (0.0-8.0) Eosinophils (%) (Auto) 0.3 % (0.0-4.0) Basophils (%) (Auto) 0.4 % (0.0-2.0) Neutrophils # (Auto) 5.3 TH/MM3 (1.8-7.7) Lymphocytes # (Auto) 1.0 TH/MM3 (1.0-4.8) Monocytes # (Auto) 0.7 TH/MM3 (0-0.9) Eosinophils # (Auto) 0.0 TH/MM3 (0-0.4) Basophils # (Auto) 0.0 TH/MM3 (0-0.2) CBC Comment DIFF FINAL Differential Comment Sodium Level 142 MEQ/L (136-145) Potassium Level 4.1 MEQ/L (3.5-5.1) Chloride Level 110 MEQ/L (98-107) Carbon Dioxide Level 20.7 MEQ/L (21.0-32.0) Anion Gap 11 MEQ/L (5-15) Blood Urea Nitrogen 18 MG/DL (7-18) Creatinine 1.43 MG/DL (0.60-1.30) Estimat Glomerular Filtration 48 ML/MIN (>89) Rate Random Glucose 157 MG/DL (74-106) Calcium Level 8.3 MG/DL (8.5-10.1) Magnesium Level 2.0 MG/DL (1.5-2.5) Total Bilirubin 0.4 MG/DL (0.2-1.0) Aspartate Amino Transf 21 U/L (15-37) (AST/SGOT) Alanine Aminotransferase 56 U/L (12-78) (ALT/SGPT) Alkaline Phosphatase 72 U/L (45-117) Total Protein 4.7 GM/DL (6.4-8.2) Albumin 2.6 GM/DL (3.4-5.0) Result Diagram: 11/16/1651411/16/16514 Telemetry: NSR (1) CAD in [place] artery (2) S/P CABG x 3 Plan: on plavix/ no ASA 2/2 allergy statin and start BB this pm if tolerates aggressive pulm toileting nebs / ezpap acapella OOB ambulate CM to eval for C will be staying at his sister's house post surgery, then travel back to [facility] (3) AMI (acute myocardial infarction) (4) Left ventricular systolic dysfunction (5) Diabetes mellitus with hyperglycemia Plan: weaning off insulin gtt HGB A1C 9.6 will need wellness educator on levemir, insulin sliding scale resume Januvia tomorrow (6) Blood loss anemia Plan: on ferrous sulfate, recheck labs in am, (7) Hyperlipemia Plan: on statin Problem Qualifiers (1) Diabetes mellitus with hyperglycemia: Qualified Code: E11.65 - Type 2 diabetes mellitus with hyperglycemia, without long-term current use of insulin Zahida Allen November 16, 2016 12:15
--- NOTE | 2016-11-16 15:18 | EKG ---
Date Performed: 11/16/2016 Time Performed: 03:05:50 PTAGE: 76 years EKG: Sinus rhythm Left axis deviation rSr'(V1) - probable normal variant Abnormal ECG Compared to prior tracing no sig nificant change PREVIOUS TRACING : 11/12/2016 15.14 DOCTOR: Anthony Guallpa Interpretating Date/Time 11/16/2016 15:18:51
[2016-11-16] MEDS: ACETAMINOPHEN/HYDROcodone 325 MG/5 MG TAB PO PRN (15:37)
[2016-11-16] MEDS: INSULIN DETEMIR 100 UNITS/ML VIAL SQ SCH (21:00)
[2016-11-16] MEDS: ATORVASTATIN 10 MG TAB PO SCH (21:10)
[2016-11-16] MEDS: METOPROLOL TARTRATE 25 MG TAB PO SCH (21:10)
[2016-11-16] MEDS: SENNOSIDES 8.6 MG TAB PO SCH (21:10)
[2016-11-17] VITALS (28 sets, daily range): BP systolic 89–117; BP diastolic 55–66; PULSE 74–90; RESP 16–20; TEMP 98.4–99.5; O2SAT 92–98
[2016-11-17] MEDS: INSULIN ASPART SUPPLEMENTAL SCALE SQ SCH ×5 (02:50→21:36)
[2016-11-17] MEDS: ceFAZolin 2 GM PREMIX 50 ML IV SCH (02:51)
[2016-11-17] MEDS: ACETAMINOPHEN/HYDROcodone 325 MG/5 MG TAB PO PRN (03:33)
[2016-11-17 06:22] LABS: AUTOMATED NEUTROPHIL # 8.8 TH/MM3 (1.8-7.7); BASOPHIL % 0.2 % (0.0-2.0); EOSINOPHIL % 0.3 % (0.0-4.0); HEMATOCRIT 21.8 % (39.0-51.0); HEMO FLAGS DIFF FINAL; LYMPH % 8.6 % (9.0-44.0); MEAN CELL VOLUME 93.4 FL (80.0-100.0); MEAN CORPUSCULAR HEMOGLOBIN 31.9 PG (27.0-34.0); MEAN CORPUSCULAR HGB CONC 34.2 % (32.0-36.0); MONO % 12.1 % (0.0-8.0); NEUT % 78.8 % (16.0-70.0); PLATELET COUNT 134 TH/MM3 (150-450); RED BLOOD COUNT 2.34 MIL/MM3 (4.50-5.90); RED CELL DISTRIBUTION WIDTH 14.6 % (11.6-17.2); WHITE BLOOD COUNT 11.2 TH/MM3 (4.0-11.0)
[2016-11-17] MEDS: PANTOPRAZOLE SOD 40 MG DELAYED RELEASE TAB PO SCH (06:23)
[2016-11-17 06:44] LABS: BICARBONATE 24.7 MEQ/L (21.0-32.0); MAGNESIUM 2.3 MG/DL (1.5-2.5); POTASSIUM 4.6 MEQ/L (3.5-5.1)
[2016-11-17] MEDS: RESP: ALBUTEROL 2.5 MG/IPRATROPIUM 0.5 MG NEB (SCH) NEB ×3 (07:20→20:36)
[2016-11-17] MEDS: INSULIN DETEMIR 100 UNITS/ML VIAL SQ SCH ×2 (09:00→21:00)
[2016-11-17] MEDS: SODIUM CHLORIDE 0.9% FLUSH 10 ML FLUSH IV FLUSH SCH ×2 (09:00→21:30)
[2016-11-17] MEDS: POLYETHYLENE GLYCOL 17 GM PKG PO SCH (09:16)
[2016-11-17] MEDS: MAGNESIUM HYDROXIDE SUSP 30 ML CUP PO SCH (09:16)
[2016-11-17] MEDS: FERROUS SULFATE 325 MG (65 MG ELEMENTAL IRON) TAB PO SCH ×2 (09:19→21:00)
[2016-11-17] MEDS: DOCUSATE SODIUM 100 MG CAP PO SCH ×2 (09:19→21:29)
[2016-11-17] MEDS: MULTIVITAMINS/MINERALS THERAPEUTIC TAB PO SCH (09:19)
[2016-11-17] MEDS: AMIODARONE 200 MG TAB PO SCH ×2 (09:19→21:29)
[2016-11-17] MEDS: METOPROLOL TARTRATE 25 MG TAB PO SCH ×2 (09:20→21:29)
[2016-11-17] MEDS: CLOPIDOGREL 75 MG TAB PO SCH (09:25)
--- NOTE | 2016-11-17 13:14 | PD.CAR.PN ---
CVT Progress Note Subjective/Hospital Course: 76/ male visiting from [place], [place] , Developed chest pain , ruled in for NSTEMI, underwent cardiac cath by Dr Murray showing multi vessel disease, EF 45% PMH: DM, HTN, HLP surgery: 11/15 1. Urgent Off-pump Coronary Artery Bypass Grafting x 3 with left internal mammary artery (PARRA) left anterior descending (LAD), reverse saphenous vein graft to Diagonal 1, reverse saphenous vein graft to the distal Right Coronary Artery (RCA) 2. Left Leg Endoscopic Vein [place] extubate post surgery without difficulty OR: 3000cc crystalloid, cell saver 250cc 11/16 BP labile this am, no pressors, start BB this pm if tolerates weaning off insulin gtt/ resume januvia in am will need platform builder with HGB A1C 9.6 allergic to ASA, on plavix transfer to stepdown 11/17 had some confusion last pm hydrocodone dc/ start on prn tramadol for pain environmental cues chest tube drained 260cc/ 12 hrs / will leave chest tube in place appreciate Diabetic education/ may need tradjenta at dc 2/2 low GFR Objective: Vital Signs Date Time Temp Pulse Resp B/P Pulse Ox O2 Delivery O2 Flow Rate FiO2 11/17/16 12:34 95 Room Air 11/17/16 11:30 98.5 76 20 97/57 98 11/17/16 10:00 76 11/17/16 09:00 88 11/17/16 08:00 86 11/17/16 07:20 95 Nasal Cannula 2.00 11/17/16 07:00 98.7 89 19 89/55 96 11/17/16 07:00 82 11/17/16 07:00 96 Room Air 11/17/16 06:00 82 11/17/16 05:00 80 11/17/16 04:38 16 11/17/16 04:00 79 11/17/16 03:00 80 11/17/16 03:00 98.5 84 18 117/58 95 11/17/16 03:00 95 Nasal Cannula 2.00 11/17/16 02:00 79 11/17/16 01:00 80 11/17/16 00:00 76 11/16/16 23:00 85 11/16/16 23:00 98.6 85 18 102/57 100 11/16/16 23:00 100 Nasal Cannula 2.00 11/16/16 22:24 16 11/16/16 22:00 84 11/16/16 21:00 128 11/16/16 20:34 92 Nasal Cannula 3.00 11/16/16 20:00 118 11/16/16 19:00 98 Nasal Cannula 2.00 11/16/16 19:00 86 11/16/16 19:00 98.2 116 18 105/60 98 11/16/16 18:29 86 11/16/16 17:01 83 11/16/16 16:41 82 11/16/16 15:19 109/67 11/16/16 15:06 98.3 87 19 87/54 100 11/16/16 15:00 86 11/16/16 14:00 86 11/16/16 13:18 97 Nasal Cannula 2.00 Labs: Laboratory Tests Test 11/17/16 04:23 White Blood Count 11.2 TH/MM3 (4.0-11.0) Red Blood Count 2.34 MIL/MM3 (4.50-5.90) Hemoglobin 7.5 GM/DL (13.0-17.0) Hematocrit 21.8 % (39.0-51.0) Mean Corpuscular Volume 93.4 FL (80.0-100.0) Mean Corpuscular Hemoglobin 31.9 PG (27.0-34.0) Mean Corpuscular Hemoglobin 34.2 % Concent (32.0-36.0) Red Cell Distribution Width 14.6 % (11.6-17.2) Platelet Count 134 TH/MM3 (150-450) Mean Platelet Volume 9.7 FL (7.0-11.0) Neutrophils (%) (Auto) 78.8 % (16.0-70.0) Lymphocytes (%) (Auto) 8.6 % (9.0-44.0) Monocytes (%) (Auto) 12.1 % (0.0-8.0) Eosinophils (%) (Auto) 0.3 % (0.0-4.0) Basophils (%) (Auto) 0.2 % (0.0-2.0) Neutrophils # (Auto) 8.8 TH/MM3 (1.8-7.7) Lymphocytes # (Auto) 1.0 TH/MM3 (1.0-4.8) Monocytes # (Auto) 1.4 TH/MM3 (0-0.9) Eosinophils # (Auto) 0.0 TH/MM3 (0-0.4) Basophils # (Auto) 0.0 TH/MM3 (0-0.2) CBC Comment DIFF FINAL Differential Comment Sodium Level 139 MEQ/L (136-145) Potassium Level 4.6 MEQ/L (3.5-5.1) Chloride Level 106 MEQ/L (98-107) Carbon Dioxide Level 24.7 MEQ/L (21.0-32.0) Anion Gap 8 MEQ/L (5-15) Blood Urea Nitrogen 23 MG/DL (7-18) Creatinine 1.74 MG/DL (0.60-1.30) Estimat Glomerular Filtration 38 ML/MIN (>89) Rate Random Glucose 151 MG/DL (74-106) Calcium Level 8.4 MG/DL (8.5-10.1) Magnesium Level 2.3 MG/DL (1.5-2.5) Result Diagram: 11/17/163 11/17/16422 Telemetry: NSR (1) CAD in [place] artery (2) S/P CABG x 3 Plan: on plavix/ no ASA 2/2 allergy statin BB aggressive pulm toileting nebs / ezpap acapella OOB ambulate CM to eval for C will be staying at his sister's house post surgery, then travel back [facility] (3) AMI (acute myocardial infarction) (4) Left ventricular systolic dysfunction (5) Diabetes mellitus with hyperglycemia Plan: HGB A1C 9.6 diabetic education/ will need strict diabetic diet on levemir, insulin sliding scale unable to resume Januvia XR 2/2 GFR consider tradjenta at discharge (6) Blood loss anemia Plan: on ferrous sulfate, HGB 7.5/ stable (7) Hyperlipemia Plan: on statin Problem Qualifiers (1) Diabetes mellitus with hyperglycemia: Qualified Code: E11.65 - Type 2 diabetes mellitus with hyperglycemia, without long-term current use of insulin Zahida Allen November 17, 2016 13:14
--- NOTE | 2016-11-17 13:25 | HHI.FF ---
Face to Face Verification Diagnosis: (1) Diabetes mellitus with hyperglycemia (2) AMI (acute myocardial infarction) (3) Blood loss anemia (4) Hyperlipemia (5) S/P CABG x 3 Home Health Nursing Order: Signs/symptoms of disease process Wound care and dressing changes Nursing assessment with vital signs Instructions: Heart and Vascular Surgery patients *Special attention to sternal dressing Mandatory frequency Assess and evaluation, 4 days in a row The next week 3X week 2 times a week for 4 weeks 1 time a week for 5 weeks Schedule Heart and Vascular patients for full 60 day certification period Initial visit Review Open Heart Surgery Discharge Instructions (Sternal precautions, Activity, Elastic hose, Incision care, Driving, Incentive spirometry, Smoking, Stepping Stone, Work and other) Need Betadine to paint incision Medication reconciliation Importance of follow up care/ check on appointments Make calendar record temperature daily When to call [facility] nurse, review instructions, phone list Incentive Spirometry, demonstration Visit 1- Begin discharge instruction for patient family and/ or caregiver using teach back method- Signs and symptoms of infection Disease characteristics Medicines and side effects Foods and nutrition/ appetite Infection control/ hand washing/ hygiene Visit 2- Continue teaching Discharge instructions- include additional information on smoking cessation , sternal dressing (sternal vac) Visit 3- Continue teaching- Cough and deep breathing, incision monitoring. Choose my plate Visit 4- Continue teaching- Discuss limitations Discuss how they are feeling Discuss progress toward goals Remaining visits- continue teaching and monitoring Incentive spirometry Q1 hr x 10, while awake, also use acapella device hourly whole awake Sternal Breast Bone Precautions: NO pushing or pulling, ( pt must use sternal pillow to support chest with all activities and with coughing ( takes up to 3 months breast bone to heal ) Daily incision care: ok to shower daily, no tub bath. Wash all incisions with liquid dial soap, clean wash cloth to each site, rinse and pat dry. Observe for any signs of infection, such as drainage which is dark yellow, ramirez, green or foul smelling. Immediately report to the surgeon any drainage from the chest incision, or legs, and for any abnormal drainage from the chest tube sites. Notify surgeon if any temp >101.5 degrees F. When specialty dressing removed/ or if you do not have one, continue to shower daily as above, then rinse and pat incision dry and paint with betadine daily x 5 days. Allow steri strips to fall off if you have any. Avoid lotions, creams, salves, oils, etc. for the first month Please see attached forms for additional instructions regarding post Open Heart specialty wound vacuum dressings. ANNETTA or Prevena , Dressing to be removed by Nursing staff on ___11/22/16____ F/U appointment: as per DC instructions: PCP in 2 weeks, CV surgeon 2 weeks, Instrument Person 3-4 weeks For any questions regarding incisions/ dressing / meds / post op care or above Symptoms, Tuesday 8am-5pm Heart & Vascular Surgery Office ( Dr. Arguello & Dr. Villa), After Hours / Nights (5pm -8am) Weekends and Holidays Please call [facility] ([facility]) Charge Nurse I have seen patient Carlton Ortega on 11/17/16. My clinical findings support the need for the requested home health care services because: Deconditioned w/ increased weakness I certify that my clinical findings support that this patient is homebound because: Post-op weakness Impaired cognitive ability/safety Zahida Allen November 17, 2016 13:25
[2016-11-17] MEDS ORDERED: traMADol HCL 50 MG TAB PO PRN (13:45)
[2016-11-17] MEDS: SENNOSIDES 8.6 MG TAB PO SCH (21:29)
[2016-11-17] MEDS: ATORVASTATIN 10 MG TAB PO SCH (21:29)
[2016-11-18] VITALS (25 sets, daily range): BP systolic 100–146; BP diastolic 48–79; PULSE 70–86; RESP 16–20; TEMP 98–99.6; O2SAT 92–98
[2016-11-18] MEDS: PANTOPRAZOLE SOD 40 MG DELAYED RELEASE TAB PO SCH (06:04)
[2016-11-18] MEDS: INSULIN ASPART SUPPLEMENTAL SCALE SQ SCH ×4 (06:45→21:00)
[2016-11-18 06:57] LABS: HEMATOCRIT 21.6 % (39.0-51.0); MEAN CELL VOLUME 92.9 FL (80.0-100.0); MEAN CORPUSCULAR HEMOGLOBIN 32.8 PG (27.0-34.0); MEAN CORPUSCULAR HGB CONC 35.2 % (32.0-36.0); PLATELET COUNT 162 TH/MM3 (150-450); RED BLOOD COUNT 2.33 MIL/MM3 (4.50-5.90); RED CELL DISTRIBUTION WIDTH 14.7 % (11.6-17.2); REVIEW FLAG FINAL
[2016-11-18] MEDS: RESP: ALBUTEROL 2.5 MG/IPRATROPIUM 0.5 MG NEB (SCH) NEB (07:33)
[2016-11-18] MEDS: SODIUM CHLORIDE 0.9% FLUSH 10 ML FLUSH IV FLUSH SCH ×2 (08:16→21:30)
[2016-11-18] MEDS: POLYETHYLENE GLYCOL 17 GM PKG PO SCH (08:16)
[2016-11-18] MEDS: MAGNESIUM HYDROXIDE SUSP 30 ML CUP PO SCH (08:16)
[2016-11-18] MEDS: METOPROLOL TARTRATE 25 MG TAB PO SCH ×2 (08:17→21:29)
[2016-11-18] MEDS: FERROUS SULFATE 325 MG (65 MG ELEMENTAL IRON) TAB PO SCH ×2 (08:17→21:29)
[2016-11-18] MEDS: AMIODARONE 200 MG TAB PO SCH ×2 (08:17→21:29)
[2016-11-18] MEDS: MULTIVITAMINS/MINERALS THERAPEUTIC TAB PO SCH (08:17)
[2016-11-18] MEDS: CLOPIDOGREL 75 MG TAB PO SCH (08:17)
[2016-11-18] MEDS: DOCUSATE SODIUM 100 MG CAP PO SCH ×2 (08:17→21:29)
[2016-11-18] MEDS: INSULIN DETEMIR 100 UNITS/ML VIAL SQ SCH (08:21)
--- NOTE | 2016-11-18 08:39 | PD.CARD.PN ---
Subjective Subjective Remarks doing well little confused last night no complaints this am Objective Medications Active Medications Insulin Aspart (NovoLOG SUPPLEMENTAL SCALE) 1 ACHS SQ Last administered on 21:36; Admin Dose 1; Start 11/17/16 at 16:00 Polyethylene Glycol (Miralax) 17 gm DAILY PO Last administered on 11/18/16 08: 16; Admin Dose 17 GM; Start 11/17/16 at 09:00 Tramadol HCl (Ultram) 50 mg Q6H PRN PO Last administered on 11/18/16 08:17; Admin Dose 50 MG; Start 11/17/16 at 13:45 Vital Signs / I&O Vital Signs Date Time Temp Pulse Resp B/P Pulse Ox O2 Delivery O2 Flow Rate FiO2 11/18/16 08:00 98.3 81 20 109/48 96 11/18/16 07:33 92 21 11/18/16 07:00 75 11/18/16 06:00 79 11/18/16 05:00 75 11/18/16 04:00 77 11/18/16 03:00 98.0 83 16 146/79 92 11/18/16 03:00 85 11/18/16 02:00 86 11/18/16 01:00 76 11/18/16 00:00 84 11/17/16 23:00 99.5 90 18 104/66 95 11/17/16 23:00 82 11/17/16 22:00 84 11/17/16 21:00 86 11/17/16 20:36 92 11/17/16 20:00 74 11/17/16 19:00 99.2 77 18 113/60 94 11/17/16 19:00 76 11/17/16 18:24 77 11/17/16 17:03 76 11/17/16 16:07 83 11/17/16 15:29 95 Room Air 11/17/16 15:09 98.4 83 16 116/65 95 11/17/16 15:00 82 11/17/16 14:36 82 11/17/16 13:00 76 11/17/16 12:34 95 Room Air 11/17/16 12:00 74 11/17/16 11:30 98.5 76 20 97/57 98 11/17/16 11:00 75 5/24/17 10:00 76 11/17/16 09:00 88 I/O 11/17/16 11/17/16 11/17/16 11/18/16 11/18/16 11/18/16 07:00 15:00 23:00 07:00 15:00 23:00 Intake Total 340 ml 720 ml 240 ml Output Total 360 ml 430 ml 220 ml Balance -20 ml 290 ml 20 ml Intake Oral 240 ml 720 ml 240 ml IV Total 100 ml Output Urine Total 100 ml 300 ml 150 ml Chest Tube Drainage Total 260 ml 130 ml 70 ml # Voids 2 2 # Bowel Movements 0 Physical Exam GENERAL: SKIN: Warm and dry. HEAD: Normocephalic. EYES: No scleral icterus. No injection or drainage. NECK: Supple, trachea midline. No JVD or lymphadenopathy. CARDIOVASCULAR: Regular rate and rhythm without murmurs, gallops, or rubs. RESPIRATORY: Breath sounds equal bilaterally. No accessory muscle use. GASTROINTESTINAL: Abdomen soft, non-tender, nondistended. MUSCULOSKELETAL: No cyanosis, or edema. BACK: Nontender without obvious deformity. No CVA tenderness. Laboratory Laboratory Tests Test 11/18/16 06:20 White Blood Count 9.0 TH/MM3 Red Blood Count 2.33 MIL/MM3 Hemoglobin 7.6 GM/DL Hematocrit 21.6 % Mean Corpuscular Volume 92.9 FL Mean Corpuscular Hemoglobin 32.8 PG Mean Corpuscular Hemoglobin 35.2 % Concent Red Cell Distribution Width 14.7 % Platelet Count 162 TH/MM3 Mean Platelet Volume 9.2 FL Imaging Last Impressions Chest X-Ray 11/16/16 0500 Signed Impressions: Service Date/Time: Wednesday, November 16, 2016 05:12 - CONCLUSION: Previously seen NG tube and ET tube have been removed, otherwise not significantly changed. Angel Chavarria MD Renal Ultrasound 11/14/16 0000 Signed Impressions: Service Date/Time: Monday, November 14, 2016 08:57 - CONCLUSION: 1. Left renal cysts. Scott Hale MD Lower Extremity Ultrasound 11/12/16 0000 Signed Impressions: Service Date/Time: Saturday, November 12, 2016 13:56 - CONCLUSION: 1. Venous mapping as above. Gabriel Silva MD Carotid Artery Ultrasound 11/12/16 0000 Signed Impressions: Service Date/Time: Saturday, November 12, 2016 11:56 - CONCLUSION: 1. Right carotid : 2. Atherosclerotic plaquing with mild elevation of velocity ratio on the right. This would suggest a mild degree of stenosis in the origin of the right internal carotid. This is felt to be less than 50%%. 3. 4. Left carotid: 5. Moderate atherosclerotic plaquing at the bifurcation. No hemodynamically significant stenosis identified. 6. The left vertebral appears atretic with only limited flow. Gabriel Silva MD Assessment and Plan Problem List: (1) CAD in [place] artery (2) S/P CABG x 3 (3) AMI (acute myocardial infarction) (4) Left ventricular systolic dysfunction (5) Diabetes mellitus with hyperglycemia (6) Blood loss anemia (7) Hyperlipemia Assessment and Plan NSTEMI multivessel CAD cardiomyopathy s/p CABG doing well postoperatively thank you DC Planning hopefully in next few days once CT removed. will sign off call with further questions Problem Qualifiers (1) Diabetes mellitus with hyperglycemia: Qualified Code: E11.65 - Type 2 diabetes mellitus with hyperglycemia, without long-term current use of insulin Shady Murray MD November 18, 2016 08:39
[2016-11-18 10:40] LABS: POTASSIUM 4.8 MEQ/L (3.5-5.1)
[2016-11-18] MEDS: RESP: ALBUTEROL 2.5 MG/IPRATROPIUM 0.5 MG NEB (PRN) NEB (14:11)
--- NOTE | 2016-11-18 15:13 | PD.CAR.PN ---
CVT Progress Note CVT: POD #: 3 Subjective/Hospital Course: 76/ male visiting from [place], [place] , Developed chest pain , ruled in for NSTEMI, underwent cardiac cath by Dr Murray showing multi vessel disease, EF 45% PMH: DM, HTN, HLP surgery: 11/15 1. Urgent Off-pump Coronary Artery Bypass Grafting x 3 with left internal mammary artery (PARRA) left anterior descending (LAD), reverse saphenous vein graft to Diagonal 1, reverse saphenous vein graft to the distal Right Coronary Artery (RCA) 2. Left Leg Endoscopic Vein [place] extubate post surgery without difficulty OR: 3000cc crystalloid, cell saver 250cc 11/16 BP labile this am, no pressors, start BB this pm if tolerates weaning off insulin gtt/ resume januvia in am will need inspector repairer with HGB A1C 9.6 allergic to ASA, on plavix transfer to stepdown 11/17 had some confusion last pm hydrocodone dc/ start on prn tramadol for pain environmental cues chest tube drained 260cc/ 12 hrs / will leave chest tube in place appreciate Diabetic education/ may need tradjenta at dc 07/29 low GFR 11/17 still has some mild confusion this am , reorients easily will dc tramadol also, creatinine worsening , avoid nephro toxins decrease levemir dose low BGM early this am chest tube dc without difficulty Objective: GENERAL: SKIN: Warm and dry. prevena to chest , incision intact to left leg HEAD: Normocephalic. EYES: No scleral icterus. No injection or drainage. NECK: Supple, trachea midline. No JVD or lymphadenopathy. CARDIOVASCULAR: Regular rate and rhythm without murmurs, gallops, or rubs. RESPIRATORY: diminished in bases Breath sounds equal bilaterally. No accessory muscle use. GASTROINTESTINAL: Abdomen soft, non-tender, nondistended. MUSCULOSKELETAL: No cyanosis, or edema. BACK: Nontender without obvious deformity. No CVA tenderness. Vital Signs Date Time Temp Pulse Resp B/P Pulse Ox O2 Delivery O2 Flow Rate FiO2 11/18/16 14:00 72 11/18/16 13:00 74 11/18/16 12:00 74 11/18/16 12:00 99.6 73 20 100/59 95 11/18/16 11:00 77 11/18/16 10:00 78 11/18/16 09:33 18 5/25/17 09:00 82 11/18/16 08:00 98.3 81 20 109/48 96 11/18/16 08:00 78 11/18/16 07:33 92 21 11/18/16 07:00 75 11/18/16 06:00 79 11/18/16 05:00 75 11/18/16 04:00 77 11/18/16 03:00 98.0 83 16 146/79 92 11/18/16 03:00 85 11/18/16 02:00 86 11/18/16 01:00 76 11/18/16 00:00 84 11/17/16 23:00 99.5 90 18 104/66 95 11/17/16 23:00 82 11/17/16 22:00 84 11/17/16 21:00 86 11/17/16 20:36 92 11/17/16 20:00 74 11/17/16 19:00 99.2 77 18 113/60 94 11/17/16 19:00 76 11/17/16 18:24 77 11/17/16 17:03 76 11/17/16 16:07 83 11/17/16 15:29 95 Room Air 11/17/16 15:09 98.4 83 16 116/65 95 Labs: Laboratory Tests Test 11/18/16 11/18/16 06:20 09:50 White Blood Count 9.0 TH/MM3 (4.0-11.0) Red Blood Count 2.33 MIL/MM3 (4.50-5.90) Hemoglobin 7.6 GM/DL (13.0-17.0) Hematocrit 21.6 % (39.0-51.0) Mean Corpuscular Volume 92.9 FL (80.0-100.0) Mean Corpuscular Hemoglobin 32.8 PG (27.0-34.0) Mean Corpuscular Hemoglobin 35.2 % Concent (32.0-36.0) Red Cell Distribution Width 14.7 % (11.6-17.2) Platelet Count 162 TH/MM3 (150-450) Mean Platelet Volume 9.2 FL (7.0-11.0) Sodium Level 138 MEQ/L (136-145) Potassium Level 4.8 MEQ/L (3.5-5.1) Chloride Level 106 MEQ/L (98-107) Carbon Dioxide Level 24.0 MEQ/L (21.0-32.0) Anion Gap 8 MEQ/L (5-15) Blood Urea Nitrogen 29 MG/DL (7-18) Creatinine 1.83 MG/DL (0.60-1.30) Estimat Glomerular Filtration 36 ML/MIN (>89) Rate Random Glucose 240 MG/DL (74-106) Calcium Level 8.3 MG/DL (8.5-10.1) Result Diagram: 11/18/16 0620 11/18/16 0950 Cardiovascular: NSR (1) CAD in [place] artery (2) S/P CABG x 3 Plan: on plavix/ no ASA 2/2 allergy statin BB aggressive pulm toileting nebs / ezpap acapella OOB ambulate CM to eval for [facility] discussed rehab placement with sister/ she has plenty of help at home will be staying at his sister's house post surgery, then travel back to [facility] (3) AMI (acute myocardial infarction) (4) Left ventricular systolic dysfunction (5) Diabetes mellitus with hyperglycemia Plan: HGB A1C 9.6 diabetic education/ will need strict diabetic diet on levemir, insulin sliding scale unable to resume Januvia XR 2/2 GFR consider tradjenta at discharge (6) Blood loss anemia Plan: on ferrous sulfate, HGB 7.5> 7.6/ stable (7) Hyperlipemia Plan: on statin (8) Confusion, postoperative Plan: dc all narcotics Problem Qualifiers (1) Diabetes mellitus with hyperglycemia: Qualified Code: E11.65 - Type 2 diabetes mellitus with hyperglycemia, without long-term current use of insulin Zahida Allen November 18, 2016 15:13
--- NOTE | 2016-11-18 17:29 | MA ---
cc: MIMI ABDI DATE: 11/12/2016 PROCEDURE PERFORMED: 1. Fluoroscopy with interpretation. 2. Coronary angiography 3. Left ventriculography. 4. Left upper extremity angiography. METHOD: The risks, benefits, and alternatives were discussed with the patient. The patient understood and consented to the procedure. DESCRIPTION OF THE PROCEDURE IN DETAIL: The patient was brought to the cardiac catheterization lab and placed on the catheterization table. The right wrist was prepped and draped in a sterile fashion. The right wrist was anesthetized with 2% lidocaine. The right radial artery was cannulated. A 6-[place] 7-cm sheath was placed without difficulty. LEFT HEART CATHETERIZATION: A 6-[place] JR-5 catheter WAS advanced across the aortic valve without difficulty. Intraventricular hemodynamics 110/10 mmHg. LEFT VENTRICULOGRAPHY: Left ventriculography was performed in the right anterior oblique view using a 30 mL contrast injection with good opacification. The left ventricular ejection fraction was visually estimated at 55%. There is regional anterior, anterolateral, apical hypokinesis present. No significant mitral regurgitation noted. CORONARY ANGIOGRAPHY: 1. The left main coronary artery is angiographically normal. 2. The left anterior descending coronary has a 99% subtotal occlusion just at the bifurcation of the diagonal branch. The ostium of the diagonal branch has some mild disease and there is a 70% stenosis in the mid-segment of the diagonal branch. The remainder of the left anterior descending has moderate diffuse disease estimated at 50% with CRISTY II flow. 3. The left circumflex coronary artery has luminal irregularities. 4. The right coronary is the dominant vessel giving rise to as posterior descending branch. There is a 90% stenosis in the mid right coronary artery. The remainder of the posterior descending branch has mild luminal irregularities. LEFT UPPER EXTREMITY PERIPHERAL ANGIOGRAPHY: The left upper extremity was selectively engaged with a JL-3.5 catheter. 1. Left subclavian is widely patent. 2. The left internal mammary is widely patent. CONCLUSIONS: 1. Severe two-vessel [place] coronary artery disease with subtotally occluded left anterior descending coronary at the bifurcation of the diagonal branch. 2. Low-normal left ventricular systolic function. PLAN: At the bifurcation of the diagonal branch, there is a subtotal occlusion which would make it difficult for a percutaneous revascularization. We will consult cardiothoracic surgery for consideration of bypass surgery. MD JORDI Mandujano /3:58 PM /5:21 PM [facility] HOSPITALJosefa
[2016-11-18] MEDS: ATORVASTATIN 10 MG TAB PO SCH (21:29)
[2016-11-18] MEDS: SENNOSIDES 8.6 MG TAB PO SCH (21:30)
[2016-11-19] VITALS (17 sets, daily range): BP systolic 98–120; BP diastolic 55–68; PULSE 60–75; RESP 16–20; TEMP 98.5–98.9; O2SAT 93–98
[2016-11-19] MEDS: PANTOPRAZOLE SOD 40 MG DELAYED RELEASE TAB PO SCH (06:12)
[2016-11-19] MEDS: INSULIN ASPART SUPPLEMENTAL SCALE SQ SCH ×3 (06:30→16:00)
[2016-11-19] MEDS ORDERED: INSULIN DETEMIR 100 UNITS/ML VIAL SQ SCH (07:00)
--- NOTE | 2016-11-19 07:17 | RADRPT ---
EXAM DATE/TIME: 11/19/2016 05:23 [place] COMPARISON: CHEST SINGLE AP, November 16, 2016, 5:12. INDICATIONS : Post chest tube removal. MEDICAL HISTORY : Hypercholesterolemia. Diabetes mellitus type II. Hypertension. SURGICAL HISTORY : CABG. ENCOUNTER: Subsequent ACUITY: 4 - 6 days PAIN SCORE: Non-responsive. LOCATION: Bilateral chest FINDINGS: Mild perihilar and basilar atelectasis again noted, not significantly changed. Left chest tube has be en removed. No pneumothorax seen. No significant effusion demonstrated on either side. Heart size stable, within normal limits. Patient has had median sternotomy. There is a tortuous thora cic aorta. Right IJ line out. CONCLUSION: Left chest tube and right central venous catheter removed in the interim. No pneumothorax. Mild perih ilar and basilar atelectasis. Mihai Kim MD on November 19, 2016 at 7:15 Board Certified Radiologist. This report was verified electronically.
[2016-11-19] MEDS: POLYETHYLENE GLYCOL 17 GM PKG PO SCH (08:52)
[2016-11-19] MEDS: MULTIVITAMINS/MINERALS THERAPEUTIC TAB PO SCH (08:53)
[2016-11-19] MEDS: AMIODARONE 200 MG TAB PO SCH (08:53)
[2016-11-19] MEDS: METOPROLOL TARTRATE 25 MG TAB PO SCH (08:53)
[2016-11-19] MEDS: DOCUSATE SODIUM 100 MG CAP PO SCH (08:53)
[2016-11-19] MEDS: MAGNESIUM HYDROXIDE SUSP 30 ML CUP PO SCH (08:54)
[2016-11-19] MEDS: SODIUM CHLORIDE 0.9% FLUSH 10 ML FLUSH IV FLUSH SCH (08:54)
[2016-11-19] MEDS: FERROUS SULFATE 325 MG (65 MG ELEMENTAL IRON) TAB PO SCH (08:54)
[2016-11-19] MEDS: CLOPIDOGREL 75 MG TAB PO SCH (08:54)
[2016-11-19 10:27] LABS: POTASSIUM 4.7 MEQ/L (3.5-5.1)
[2016-11-19] MEDS ORDERED: BISACODYL 10 MG SUPP RECTAL ONE (11:30)
[2016-11-19] MEDS ORDERED: DEXTROSE 50% IN WATER 50 ML VIAL(D50) IV PRN (11:30)
[2016-11-19] MEDS ORDERED: GLUCAGON 1 MG/ML VIAL OTHER PRN (11:30)
[2016-11-19] MEDS ORDERED: PLAV75TA29 PO (11:47)
[2016-11-19] MEDS ORDERED: GLUCKIT15 (11:48)
[2016-11-19] MEDS ORDERED: NOVOLOGP2 SQ (11:48)
[2016-11-19] MEDS ORDERED: METO25TA3 PO (11:48)
[2016-11-19] MEDS ORDERED: INSU1MIS15 (11:48)
[2016-11-19] MEDS ORDERED: THERM PO (11:48)
[2016-11-19] MEDS ORDERED: DOCU1CAP39 PO (11:48)
[2016-11-19] MEDS ORDERED: TRAD5TAB PO (11:48)
[2016-11-19] MEDS ORDERED: LANCETS1 MI1 (11:48)
[2016-11-19] MEDS ORDERED: FERR325T20 PO (11:48)
[2016-11-19] MEDS ORDERED: GLUCTES12 (11:48)
[2016-11-19] MEDS: RESP: ALBUTEROL 2.5 MG/IPRATROPIUM 0.5 MG NEB (PRN) NEB (11:59)
--- NOTE | 2016-11-19 11:59 | HHI.DS ---
Discharge Summary Admission Date November 12, 2016 at 09:07 Discharge Date: November 19, 2016 Admitting Diagnosis Chest Pain (1) Chest pain Diagnosis: Principal (2) LUCAS (acute kidney injury) Diagnosis: Principal (3) Anemia Diagnosis: Secondary (4) Diabetes mellitus with hyperglycemia Diagnosis: Principal (5) AMI (acute myocardial infarction) Diagnosis: Principal (6) Blood loss anemia Diagnosis: Secondary (7) Hyperlipemia Diagnosis: Principal (8) Confusion, postoperative Diagnosis: Secondary (9) S/P CABG x 3 Diagnosis: Principal Procedures surgery: 11/15 1. Urgent Off-pump Coronary Artery Bypass Grafting x 3 with left internal mammary artery (PARRA) left anterior descending (LAD), reverse saphenous vein graft to Diagonal 1, reverse saphenous vein graft to the distal Right Coronary Artery (RCA) 2. Left Leg Endoscopic Vein [place] Brief History 76/ male visiting from [place], [place] , Developed chest pain , ruled in for NSTEMI, underwent cardiac cath by Dr Murray showing multi vessel disease, EF 45% PMH: DM, HTN, HLP surgery: 11/15 1. Urgent Off-pump Coronary Artery Bypass Grafting x 3 with left internal mammary artery (PARRA) left anterior descending (LAD), reverse saphenous vein graft to Diagonal 1, reverse saphenous vein graft to the distal Right Coronary Artery (RCA) 2. Left Leg Endoscopic Vein [place] extubate post surgery without difficulty CBC/BMP: 11/18/16 0620 11/19/16 0939 Significant Findings Laboratory Tests Test 11/17/16 11/18/16 11/18/16 11/19/16 04:23 06:20 09:50 09:39 White Blood Count 11.2 TH/MM3 (4.0-11.0) Red Blood Count 2.34 MIL/MM3 2.33 MIL/MM3 (4.50-5.90) (4.50-5.90) Hemoglobin 7.5 GM/DL 7.6 GM/DL (13.0-17.0) (13.0-17.0) Hematocrit 21.8 % 21.6 % (39.0-51.0) (39.0-51.0) Platelet Count 134 TH/MM3 (150-450) Neutrophils (%) (Auto) 78.8 % (16.0-70.0) Lymphocytes (%) (Auto) 8.6 % (9.0-44.0) Monocytes (%) (Auto) 12.1 % (0.0-8.0) Neutrophils # (Auto) 8.8 TH/MM3 (1.8-7.7) Monocytes # (Auto) 1.4 TH/MM3 (0-0.9) Blood Urea Nitrogen 23 MG/DL (7-18) 29 MG/DL (7-18) 29 MG/DL (7-18) Creatinine 1.74 MG/DL 1.83 MG/DL 1.84 MG/DL (0.60-1.30) (0.60-1.30) (0.60-1.30) Estimat Glomerular Filtration 38 ML/MIN (>89) 36 ML/MIN (>89) 36 ML/MIN (>89) Rate Random Glucose 151 MG/DL 240 MG/DL 161 MG/DL (74-106) (74-106) (74-106) Calcium Level 8.4 MG/DL 8.3 MG/DL 8.1 MG/DL (8.5-10.1) (8.5-10.1) (8.5-10.1) Imaging Last Impressions Chest X-Ray 11/19/16 0600 Signed Impressions: Service Date/Time: Saturday, November 19, 2016 05:23 - CONCLUSION: Left chest tube and right central venous catheter removed in the interim. No pneumothorax. Mild perihilar and basilar atelectasis. Mihai Kim MD Renal Ultrasound 11/14/16 0000 Signed Impressions: Service Date/Time: Monday, November 14, 2016 08:57 - CONCLUSION: 1. Left renal cysts. Scott Hale MD Lower Extremity Ultrasound 11/12/16 0000 Signed Impressions: Service Date/Time: Saturday, November 12, 2016 13:56 - CONCLUSION: 1. Venous mapping as above. Gabriel Silva MD Carotid Artery Ultrasound 11/12/16 0000 Signed Impressions: Service Date/Time: Saturday, November 12, 2016 11:56 - CONCLUSION: 1. Right carotid : 2. Atherosclerotic plaquing with mild elevation of velocity ratio on the right. This would suggest a mild degree of stenosis in the origin of the right internal carotid. This is felt to be less than 50%%. 3. 4. Left carotid: 5. Moderate atherosclerotic plaquing at the bifurcation. No hemodynamically significant stenosis identified. 6. The left vertebral appears atretic with only limited flow. Gabriel Silva MD PE at Discharge GENERAL: SKIN: Warm and dry. prevena dressing to chest , incision intact to left leg HEAD: Normocephalic. EYES: No scleral icterus. No injection or drainage. NECK: Supple, trachea midline. No JVD or lymphadenopathy. CARDIOVASCULAR: Regular rate and rhythm without murmurs, gallops, or rubs. RESPIRATORY: Breath sounds equal bilaterally. No accessory muscle use. GASTROINTESTINAL: Abdomen soft, non-tender, nondistended. MUSCULOSKELETAL: No cyanosis, or edema. BACK: Nontender without obvious deformity. No CVA tenderness. Hospital Course 11/16 BP labile this am, no pressors, start BB this pm if tolerates weaning off insulin gtt/ resume januvia in am will need staff educator with HGB A1C 9.6 allergic to ASA, on plavix transfer to stepdown 11/17 had some confusion last pm hydrocodone dc/ start on prn tramadol for pain environmental cues chest tube drained 260cc/ 12 hrs / will leave chest tube in place appreciate Diabetic education/ may need tradjenta at dc / low GFR 11/17 still has some mild confusion this am , reorients easily will dc tramadol also, creatinine worsening , avoid nephro toxins decrease levemir dose low BGM early this am chest tube dc without difficulty 11/18 less confused doing well, ambulating without difficulty has some low blood sugars this am pm dose of levemir dc 11/19 stable for dc after pt has BM confusion improved, sister aware/ will dc Janumet/ from home med list/ add Tradjenta po for blood sugar coverage send home with RX for new BGM machine and supplies Pt Condition on Discharge: Good Discharge Disposition: Disch w/ Home Health Serv Discharge Instructions DIET: Follow Instructions for: Heart Healthy Diet, Diabetic Diet Activities you can perform: Shower Only-No Bath Activities to avoid: Lifting/Bending, Strenuous Activity, Driving Additional Activity Instructio: no lifting > 8 lbs or gallon of milk Follow up Referrals: Cardiology with Shady Murray MD PCP Follow-up with Dr Bassam Vasquez Surgical with Rolando Arguello MD, Jacqueline R. ARNP November 19, 2016 11:59
--- NOTE | 2016-11-19 12:00 | HHI.DS ---
Discharge Summary Admission Date November 12, 2016 at 09:07 Admitting Diagnosis Chest Pain (1) Chest pain Diagnosis: Principal (2) LUCAS (acute kidney injury) Diagnosis: Principal (3) Anemia Diagnosis: Secondary (4) Diabetes mellitus with hyperglycemia Diagnosis: Principal (5) AMI (acute myocardial infarction) Diagnosis: Principal (6) Blood loss anemia Diagnosis: Secondary (7) Hyperlipemia Diagnosis: Principal (8) Confusion, postoperative Diagnosis: Secondary (9) S/P CABG x 3 Diagnosis: Principal Procedures surgery: 11/15 1. Urgent Off-pump Coronary Artery Bypass Grafting x 3 with left internal mammary artery (PARRA) left anterior descending (LAD), reverse saphenous vein graft to Diagonal 1, reverse saphenous vein graft to the distal Right Coronary Artery (RCA) 2. Left Leg Endoscopic Vein Earth Brief History 76/ male visiting from [place], [place] , Developed chest pain , ruled in for NSTEMI, underwent cardiac cath by Dr Murray showing multi vessel disease, EF 45% PMH: DM, HTN, HLP surgery: 11/15 1. Urgent Off-pump Coronary Artery Bypass Grafting x 3 with left internal mammary artery (PARRA) left anterior descending (LAD), reverse saphenous vein graft to Diagonal 1, reverse saphenous vein graft to the distal Right Coronary Artery (RCA) 2. Left Leg Endoscopic Vein Earth extubate post surgery without difficulty CBC/BMP: 11/18/16 0620 11/19/16 0939 Significant Findings Laboratory Tests Test 11/17/16 11/18/16 11/18/16 11/19/16 04:23 06:20 09:50 09:39 White Blood Count 11.2 TH/MM3 (4.0-11.0) Red Blood Count 2.34 MIL/MM3 2.33 MIL/MM3 (4.50-5.90) (4.50-5.90) Hemoglobin 7.5 GM/DL 7.6 GM/DL (13.0-17.0) (13.0-17.0) Hematocrit 21.8 % 21.6 % (39.0-51.0) (39.0-51.0) Platelet Count 134 TH/MM3 (150-450) Neutrophils (%) (Auto) 78.8 % (16.0-70.0) Lymphocytes (%) (Auto) 8.6 % (9.0-44.0) Monocytes (%) (Auto) 12.1 % (0.0-8.0) Neutrophils # (Auto) 8.8 TH/MM3 (1.8-7.7) Monocytes # (Auto) 1.4 TH/MM3 (0-0.9) Blood Urea Nitrogen 23 MG/DL (7-18) 29 MG/DL (7-18) 29 MG/DL (7-18) Creatinine 1.74 MG/DL 1.83 MG/DL 1.84 MG/DL (0.60-1.30) (0.60-1.30) (0.60-1.30) Estimat Glomerular Filtration 38 ML/MIN (>89) 36 ML/MIN (>89) 36 ML/MIN (>89) Rate Random Glucose 151 MG/DL 240 MG/DL 161 MG/DL (74-106) (74-106) (74-106) Calcium Level 8.4 MG/DL 8.3 MG/DL 8.1 MG/DL (8.5-10.1) (8.5-10.1) (8.5-10.1) PE at Discharge GENERAL: SKIN: Warm and dry. prevena dressing to chest , incision intact to left leg HEAD: Normocephalic. EYES: No scleral icterus. No injection or drainage. NECK: Supple, trachea midline. No JVD or lymphadenopathy. CARDIOVASCULAR: Regular rate and rhythm without murmurs, gallops, or rubs. RESPIRATORY: Breath sounds equal bilaterally. No accessory muscle use. GASTROINTESTINAL: Abdomen soft, non-tender, nondistended. MUSCULOSKELETAL: No cyanosis, or edema. BACK: Nontender without obvious deformity. No CVA tenderness. Pt Condition on Discharge: Good Discharge Disposition: Disch w/ Home Health Serv Discharge Instructions DIET: Follow Instructions for: Heart Healthy Diet, Diabetic Diet Activities you can perform: Shower Only-No Bath Activities to avoid: Lifting/Bending, Strenuous Activity, Driving Additional Activity Instructio: no lifting > 8 lbs or gallon of milk Follow up Referrals: Cardiology with Shady Murray MD PCP Follow-up with Dr Bassam Vasquez Surgical with Rolando Arguello MD New Orders: BASIC METABOLIC PROF - 1 Week New Medications: Blood Glucose Monitoring W/Device (Glucocom Blood Glucose Mo W/Device) 1 Kit Kit 1 KIT .ROUTE BIDAC am and pm Blood Sugar Management #1 KIT Glucocom Test Strips (Glucocom Test Strips) 1 Talisha Talisha 1 EA .ROUTE BIDAC Blood Sugar Management #60 BOX Insulin Aspart Inj (Novolog Inj) 1,000 Unit/10 Ml Vial 1-9 UNITS SQ BIDAC Max dose at bedtime:( )units; sugars less than 70,(0)units; sugars 150-199,(1) unit; sugars 200-249,(3) units; sugars 250-299,(5) units; sugars 300-349,(7) units; sugars greater than 349,(9) units Blood Sugar Management #10 Ref 0 ML Insulin Syringe/U-100/31G X 5/16" 1 ml (Insulin Syringe/U-100/31G X 5/16" 1 ml) 1 Mis Mis 1 EA .ROUTE BIDAC check blood sugar am and pm Blood Sugar Management #60 BOX Lancets (Lancets) 1 Mis Mis 1 EA .ROUTE BIDAC check blood sugar ac breakfast and pm Blood Sugar Management # 60 Ref 0 BOX Linagliptin (Tradjenta) 5 Mg Tab 5 MG PO DAILY discontinue januvia/metformin 2/2 elevated creatinine Blood Sugar Management #30 Ref 1 TAB Clopidogrel (Plavix) 75 Mg Tab 75 MG PO DAILY Blood Clot Prevention #30 Ref 2 TAB Docusate Sodium (Dok) 100 Mg Cap 100 MG PO BID Constipation #60 Ref 0 CAP Ferrous Sulfate (Ferosul) 325 Mg Tablet 325 MG PO BID anemia #60 Ref 1 TAB Metoprolol Tartrate (Metoprolol Tartrate) 25 Mg Tab 25 MG PO Q12HR Blood Pressure Management #60 Ref 0 TAB Multiple Vitamins W/ Minerals (Thera M Plus) 1 Tab 1 TAB PO DAILY multi vitamin #30 Ref 1 TAB Continued Medications: Atorvastatin (Atorvastatin) 10 Mg Tab 10 MG PO HS Cholesterol Management #30 Ref 0 TAB Discontinued Medications: Losartan (Losartan) 100 Mg Tab 100 MG PO DAILY Blood Pressure Management #30 Ref 0 TAB Sitagliptin-Metformin ER (Janumet Xr) 50-1,000 Mg Tab 1 TAB PO DAILY Blood Sugar Management #30 Ref 0 TAB Zahida Allen November 19, 2016 12:00
[2016-11-19] MEDS ORDERED: INSULIN ASPART SUPPLEMENTAL SCALE SQ SCH (16:00)
== END 2016-11-19 18:44 | disposition home health service (06) | DRG 234 ==
LOC: PHED 00:09 → PHEDA 01:47 → PH3A 02:50 → HCIS 12:06 → OBSVTOIN 11-12 09:07 → HCVR 11-14 14:10 → HCIN 11-16 10:58
PROVIDERS: ADMIT Thoracic Surgery (Cardiothoracic Vascular Surgery); ATTEND Thoracic Surgery (Cardiothoracic Vascular Surgery)
PROC: 4A023N7 Measurement of Cardiac Sampling and Pressure, Left Heart, Percutaneous Approach (ICD-10-PCS; 2016-11-12)
PROC: B2111ZZ Fluoroscopy of Multiple Coronary Arteries using Low Osmolar Contrast (ICD-10-PCS; 2016-11-12)
PROC: B2151ZZ Fluoroscopy of Left Heart using Low Osmolar Contrast (ICD-10-PCS; 2016-11-12)
PROC: B517ZZZ Fluoroscopy of Left Subclavian Vein (ICD-10-PCS; 2016-11-12)
PROC: 021109W Bypass Coronary Artery, Two Arteries from Aorta with Autologous Venous Tissue, Open Approach (ICD-10-PCS; 2016-11-15)
PROC: 06BQ4ZZ Excision of Left Saphenous Vein, Percutaneous Endoscopic Approach (ICD-10-PCS; 2016-11-15)
PROC: 02100Z9 Bypass Coronary Artery, One Artery from Left Internal Mammary, Open Approach (ICD-10-PCS; principal; 2016-11-15 07:08)
DX: I21.4 Non-ST elevation (NSTEMI) myocardial infarction (principal); N17.9 Acute kidney failure, unspecified; I42.9 Cardiomyopathy, unspecified; E11.22 Type 2 diabetes mellitus with diabetic chronic kidney disease; E11.65 Type 2 diabetes mellitus with hyperglycemia; E78.5 Hyperlipidemia, unspecified; D72.829 Elevated white blood cell count, unspecified; I12.9 Hypertensive chronic kidney disease with stage 1 through stage 4 chronic kidney disease, or unspecified chronic kidney disease; N18.3 Chronic kidney disease, stage 3 (moderate); I45.10 Unspecified right bundle-branch block; I25.10 Atherosclerotic heart disease of native coronary artery without angina pectoris; R00.1 Bradycardia, unspecified; N28.1 Cyst of kidney, acquired; R41.0 Disorientation, unspecified; Z79.84 Long term (current) use of oral hypoglycemic drugs; Z88.6 Allergy status to analgesic agent; Z87.891 Personal history of nicotine dependence
CPT/HCPCS: 36430; 71010; 76775; 76937; 80048; 80053; 80061; 81001; 82272; 82550; 82552; 82570; 82947; 82948; 83036; 83735; 84133; 84156; 84300; 84484; 85014; 85025; 85027; 85610; 85730; 86850; 86900; 86901; 86920; 87641; 93005; 93306; 93318; 93458; 93880; 93970; 93998; 94002; 94150; 94640; 94664; 94667; 94668; C1768; C1769; C1893; C9248; J0131; J0583; J0690; J1644; J1815; J1817; J2250; J2370; J2440; J2710; J2720; J3010; J3370; J3475; J3480; J7030; J7040; J7050; J7120; P9016; P9045; Q9967